=== PATIENT | female | born 1950 | race African-American/Black ===

== ENCOUNTER 2017-01-25 23:12 | Inpatient (IN) ==
[2017-01-26] MEDS ORDERED: FUROSEMIDE 100 MG/10 ML VIAL IV STA (01:11)
[2017-01-26] MEDS ORDERED: ASPIRIN 325 MG TABLET PO STA (01:11)
[2017-01-26] MEDS ORDERED: ONDANSETRON 4 MG/2 ML VIAL IV STA (01:11)
[2017-01-26] MEDS ORDERED: MORPHINE 2 MG/1 ML SYRINGE IV STA (01:11)
[2017-01-26] MEDS ORDERED: ALBUTEROL 2.5 MG/3 ML NEB RESP TX SCH (01:30)
--- NOTE | 2017-01-26 01:37 | Emergency Department Note ---
Todd Ayala Mantricia, am scribing for, and in the presence of, Melvin Choudhary MD 01:25. Kenrick Ayala Charles R, MD, personally performed the services described in this documentation, ascribed by Theodora Brooks in my presence, and it is both accurate and complete . Arrival - Arrival ED Nursing Triage Note: pt presented to triage via w/c with c/o edema to BLE x 3 days. 2+ pitting edema noted to BLE. also c/o SOB x 2 days. O2 sat 98% on RA. Denies CP Mode of Arrival: Wheelchair Limitations: No Limitations Source: Patient - History of Present Illness Onset (ago): day(s) Consistency: constant Severity: mild Date of Last Menstrual Period: hyst <Melvin Choudhary - Last Filed: 01/26/17 02:41> <Antonio Varela - Last Filed: 01/26/17 04:10> - Arrival Chief Complaint: Shortness of Breath Stated Complaint: swelling feet Time Seen by Provider: 01/26/17 01:11 - History of Present Illness HPI Narrative: Pt is a 66 y/o black female arriving to ED via wheelchair with c/o lower extremity edema bilaterally that onset 3 days ago. She does confirm heart problems and states that she does have one stent placed. Pt is currently taking lasix and plavix. Pt's bellmaker is Dr. Pagan. She denies any strenuous standing on her feet. No other complaints were reported to ED. (Theodora Brooks) Pt is a 66 y/o black female arriving to ED via wheelchair with c/o lower extremity edema bilaterally that onset 3 days ago. She does confirm heart problems and states that she does have one stent placed. Pt is currently taking lasix and plavix. Pt's bellmaker is Dr. Pagan. She denies any strenuous standing on her feet. No other complaints were reported to ED. (Melvin Choudhary) Allergies/Adverse Reactions: Allergies Allergy/AdvReac Type Severity Reaction Status Date / Time morphine Allergy Anxiety Verified 01/26/17 02:22 Review of System - Review of System 12 point system: reviewed and no additional remarkable complaints except as stated - Review of System Constitutional: Absent: chills, diaphoresis, fever Eyes: Absent: pain Respiratory: Absent: cough Cardiovascular: Absent: chest pain Gastrointestinal: Absent: abdominal pain, nausea, vomiting, diarrhea Musculoskeletal: Present: other (leg swelling). Absent: arm pain, back pain, leg pain, neck pain <Melvin Choudhary - Last Filed: 01/26/17 02:41> Medical,Surgical,& Family Hx - Medical History Cardio: History of: CAD, Hypertension Endocrine: History of: Diabetes Mellitus (IDDM) Rheumatology: History of;: Rheumatological Problems - Surgical History Cardiac Surgeries: Sugical HX of: Cardiac Catheterization (STENT) Orthopedic Surgeries: Surgical HX of;: Total Knee Replacement (BILATERAL) - Family History Family History: Reports;: Family Cancer, Family Diabetes, Family Heart Disease, Family Hypertension - Social History Smoking Status: Former smoker Frequency of Alcohol Use: Rarely Type of Drug Use: None <Melvin Choudhary - Last Filed: 01/26/17 02:41> Exam - General General appearance: alert, in no apparent distress - Head Head exam: Present: atraumatic, normocephalic, normal inspection - Eye Eye exam: Present: normal appearance, PERRL, EOMI - ENT ENT exam: Present: normal exam, normal oropharynx, mucous membranes moist, TM's normal bilaterally, normal external ear exam - Neck Neck exam: Present: normal inspection, full ROM, trachea midline. Absent: tenderness - Chest Chest inspection: Present: normal inspection, symmetric chest wall rise. Absent : tenderness - Respiratory Respiratory exam: Present: rales (bilateral) - Cardiovascular Cardiovascular exam: Present: regular rate, normal rhythm, normal heart sounds - Abdominal Exam Abdominal exam: Present: soft, normal bowel sounds. Absent: distention, tenderness, guarding, rebound - Extremities Exam Extremities exam: Present: normal inspection, full ROM, normal capillary refill , other (+2 LE edema bilat up to knees). Absent: tenderness - Back Exam Back exam: Present: normal inspection, full ROM. Absent: tenderness - Neurological Exam Neurological exam: Present: alert, oriented X3, CN II-XII intact, normal gait, reflexes normal - Psychiatric Psychiatric exam: Present: normal affect, normal mood - Skin Skin exam: Present: warm, dry, intact, normal color <Melvin Choudhary R - Last Filed: 01/26/17 02:41> Vital Signs: Vital Signs Temperature 98.2 F 01/25/17 23:28 Pulse Rate 102 H 01/26/17 02:50 Respiratory Rate 24 01/26/17 02:50 Blood Pressure 191/69 01/25/17 23:28 O2 Sat by Pulse Oximetry 99 01/26/17 02:50 Course - Consultations Time: 02:42 <Melvin Choudhary - Last Filed: 01/26/17 02:41> <Antonio Varela - Last Filed: 01/26/17 04:10> Course Narrative: I took over the care of this patient at 2 AM. She appeared to have heart failure and responded to some Lasix diuresis. Dr. Fletcher saw her from the hospital service and agreed to treat her in the hospital. (Antonio Varela) - Consultations Consultation #1: Signed out to Dr. Varela ER doctor assuming care of this patient labs are pending (Melvin Choudhary) Results - Labs CBC & BMP: 01/26/17 01:58 <Melvin Choudhary - Last Filed: 01/26/17 02:41> - Labs CBC & BMP: 01/26/17 01:58 01/26/17 01:58 <Antonio Varela - Last Filed: 01/26/17 04:10> Disposition Case discussed with: patient, patient's family <Melvin Choudhary - Last Filed: 01/26/17 02:41> Case discussed with: patient, patient's family Time of Disposition: 04:10 <Antonio Varela - Last Filed: 01/26/17 04:10> Clinical Impression: Congestive heart failure, Lower extremity edema Disposition: Still a Patient Condition: Stable
[2017-01-26 02:25] LABS: Basophils # 0.1 10*3/uL (0.0-0.2); Basophils % 0.5 % (0.0-0.8); Eosinophils # 0.5 10*3/uL (0.0-0.87); Hematocrit 27.3 VOL% (35.7-47.0); Hemoglobin 8.9 GM/DL (12.0-16.0); Immature Granulocytes % 0.5 %; Immature Granulocytes Absolute 0.06 #; Lymphocytes # 4.4 10*3/uL (1.4-4.0); Lymphocytes % 36.1 % (21.3-54.2); Mean Corpuscular HGB Conc 32.6 GM/DL (32-36); Mean Corpuscular Hemoglobin 28 PG (27-34); Mean Corpuscular Volume 86.9 FL (87-102); Mean Platelet Volume 9.8 FL (9.6-12.0); Monocytes # 1.5 10*3/uL (0.11-0.8); Neutrophils # 5.7 10*3/uL (1.4-7.4); Neutrophils % 46.9 % (38.7-73.9); Platelet Count 412 T/CUMM (130-400); Red Blood Count 3.14 MC/CUMM (3.8-5.5); White Blood Count 12.1 T/CUMM (4-12)
[2017-01-26] MEDS ORDERED: ONDANSETRON 4 MG/2 ML VIAL ONE (02:26)
[2017-01-26] MEDS ORDERED: FUROSEMIDE 40 MG/4 ML VIAL ONE (02:26)
[2017-01-26] MEDS ORDERED: ASPIRIN 325 MG TABLET ONE (02:26)
[2017-01-26] MEDS ORDERED: FUROSEMIDE 20 MG/2 ML VIAL ONE (02:26)
[2017-01-26 02:35] LABS: INR 0.9; PT Patient Result 9.3 SECS
[2017-01-26 02:35] LABS: Apearance,Urine CLEAR (Clear); Bilirubin,Urine Negative (Negative); Blood, Urine Small mg/dL (Negative); Glucose,Urine (UA) Negative (Negative); Ketones,Urine Negative (Negative); Mucus,Urine Occasional /LPF (Occasional); Nitrite,Urine Negative (Negative); Protein,Urine Negative; RBC,Urine 1 /HPF (0-4); Squamous Epithelial Cell,Urine Occasional /HPF (0-10); Urine Color Straw (Yellow); Urine Specific Gravity 1.005 (1.001-1.035); Urine Urobilinogen < 2.0 EU/DL (0.2-1.0)
[2017-01-26 03:00] LABS: Alanine Aminotransferase 38 U/L (13-56); Albumin 3.1 G/DL (3.4-5.0); Alkaline Phosphatase 160 U/L (45-117); Aspartate Amino Transferase 30 U/L (0-37); Bilirubin,Total < 0.39 MG/DL (0.2-1.0); Blood Urea Nitrogen 24 MG/DL (7-18); Calcium 8.9 MG/DL (8.5-10.1); Glucose 98 MG/DL (74-106); Magnesium 2.1 MG/DL (1.8-2.4); Osmolality,Calculated 286.1 MOS/KG (273-304); Potassium 4.8 MMOL/L (3.5-5.1); Sodium 142 MMOL/L (136-145); Total Protein 7.1 G/DL (6.4-8.3); Troponin I Only 0.032 NG/ML (0.00-0.045)
[2017-01-26] MEDS ORDERED: MAGNESIUM SULF RIDER 2 GM in PREMIX 1 EACH IV PRN (04:26)
[2017-01-26] MEDS ORDERED: MAGNESIUM SULF RIDER 4 GM in PREMIX 1 EACH IV PRN (04:26)
[2017-01-26] MEDS ORDERED: ONDANSETRON 4 MG/2 ML VIAL IV PRN (04:26)
--- NOTE | 2017-01-26 04:35 | Hospitalist History & Physical ---
Assessment and Plan (1) Anemia Status: Acute Current Visit: Yes (2) History of diabetes mellitus Status: Acute Current Visit: Yes (3) Congestive heart failure Status: Acute Current Visit: Yes (4) Lower extremity edema Status: Acute Assessment and plan: Patient symptoms have improved since diuresis. We will continue diuresis and monitor her chemistry. She will be admitted to telemetry are monitored bed. Will consult cardiology for their evaluation. Continue home meds as appropriate once they are confirmed. Current Visit: Yes History of Present Illness Chief complaint: Shortness of breath and lower extremity edema 3 days History of present illness: Ms. Henderson is a 66 year old female past medical history significant for coronary artery disease hypertension, diabetes and increased cholesterol who is in normal state of health until approximately 3-4 days ago. Patient reports lower extremity edema since that time. Patient is having increasing PND symptoms at night. She denies that this is ever happened to her before. She is some having some pain in her ribs at times but denies any significant chest pain. Patient's workup is consistent with congestive heart failure. Patient x- ray appears to be heart failure patient's symptoms and physical exam are consistent with heart failure her BNP though is not elevated. Allergies Allergy/AdvReac Type Severity Reaction Status Date / Time morphine Allergy Anxiety Verified 01/26/17 02:22 Medical,Surgical,& Family Hx - Medical History Cardio: History of: CAD, Hypertension Endocrine: History of: Diabetes Mellitus (IDDM) Rheumatology: History of;: Rheumatological Problems - Surgical History Cardiac Surgeries: Sugical HX of: Cardiac Catheterization (STENT) Orthopedic Surgeries: Surgical HX of;: Total Knee Replacement (BILATERAL) - Family History Family History: Reports;: Family Cancer, Family Diabetes, Family Heart Disease, Family Hypertension - Social History Smoking Status: Former smoker Frequency of Alcohol Use: Rarely Type of Drug Use: None 12 point system: reviewed and no additional remarkable complaints except as stated Exam - Constitutional Vitals: Period Temp Pulse Resp BP Sys/Jacobs Pulse Ox Last 24 Hr 98.2 F 76-102 20-24 191/69 98-99 General General appearance: alert, in no apparent distress - Head Head exam: Present: atraumatic, normocephalic, normal inspection - Eye Eye exam: Present: normal appearance, PERRL, EOMI - ENT ENT exam: Present: normal exam, normal oropharynx, mucous membranes moist, TM's normal bilaterally, normal external ear exam - Neck Neck exam: Present: normal inspection, full ROM, trachea midline. - Chest Chest inspection: Present: normal inspection, symmetric chest wall rise. - Respiratory Respiratory exam: Present: Rales are present - Cardiovascular Cardiovascular exam: Present: regular rate, normal rhythm, normal heart sounds - Abdominal Exam Abdominal exam: Present: soft, normal bowel sounds. - Extremities Exam Extremities exam: Present: normal inspection, full ROM, normal capillary refill , patient has pitting edema 2+ up to knees bilaterally - Back Exam Back exam: Present: normal inspection, full ROM. Absent: tenderness - Neurological Exam Neurological exam: Present: alert, oriented X3, CN II-XII intact, normal gait, reflexes normal - Psychiatric Psychiatric exam: Present: normal affect, normal mood - Skin Skin exam: Present: warm, dry, intact, normal color Results - Labs CBC & BMP: 01/26/17 01:58 01/26/17 01:58
[2017-01-26] MEDS ORDERED: GLUCAGON 1 MG VIAL IM PRN (06:27)
[2017-01-26] MEDS ORDERED: DEXTROSE 50% 25 GM/50 ML SYRINGE IV PRN (06:27)
--- NOTE | 2017-01-26 07:47 | XRay Report ---
XR chest 1V portable Indication: SOB Comparison: Chest x-ray dated January 12, 2018 Technique: Single frontal view of the chest. Findings: [id number] cardiomegaly. There is a nonspecific reticular pattern throughout the bilateral lungs suspicious for interstitial pulmonary edema, interstitial pneumonia, or other interstitial lung disease. Interstitial pneumonia favored. Visualized osseous and surrounding soft tissue structures appear grossly unchanged. IMPRESSION: As above. PROCEDURE INTERPRETED AT [facility] DEPARTMENT OF RADIOLOGY Final Report Signed by: Dr Aashish Avalos
[2017-01-26] MEDS ORDERED: FUROSEMIDE 40 MG/4 ML VIAL IV SCH (08:00)
[2017-01-26 08:09] LABS: Alanine Aminotransferase 31 U/L (13-56); Albumin 2.8 G/DL (3.4-5.0); Alkaline Phosphatase 120 U/L (45-117); Aspartate Amino Transferase 23 U/L (0-37); Bilirubin,Total < 0.39 MG/DL (0.2-1.0); Blood Urea Nitrogen 24 MG/DL (7-18); Calcium 8.3 MG/DL (8.5-10.1); Glucose 160 MG/DL (74-106); Potassium 3.9 MMOL/L (3.5-5.1); Sodium 143 MMOL/L (136-145); Total Protein 6.5 G/DL (6.4-8.3)
[2017-01-26 08:12] LABS: Troponin I Only 0.064 NG/ML (0.00-0.045)
--- NOTE | 2017-01-26 08:31 | EKG Report ---
Stationary ECG Study [facility] ER Test Date: 01/25/2017 11:35:03 PM Pat Name: WAQAS MENDENHALL Department: Room: 125 Gender: F [employer] Architect: Palma : 1950 Requested by: Melvin Grubbs Order Number: [id number] Maynor MD: NUHA PRASAD Intervals [place] Rate: 84 P: 43 MA: 189 QRS: 41 QRSD: 98 T: 29 QT: 365 QTc: 406 Interpretive Statements SINUS RHYTHM SEPTAL INFARCT, AGE UNDETERMINED Electronically Signed On 01-26-17 11:01:13 CDT by NUHA PRASAD [email or web address]
--- NOTE | 2017-01-26 08:56 | Cardiology Consult Note ---
<Lesli Arndt - Last Filed: 01/26/17 08:18> Assessment and Plan - Time spent with patient Time spent with patient: Greater than 30 minutes (1) Congestive heart failure Status: Acute Assessment and plan: See plan of care listed below. Current Visit: Yes (2) Dyspnea on exertion Status: Acute Assessment and plan: See plan of care listed below. Current Visit: Yes (3) History of coronary artery disease Status: Chronic Assessment and plan: See plan of care listed below. Current Visit: No (4) Renal insufficiency Status: Acute Assessment and plan: See plan of care listed below. Current Visit: Yes (5) PATEL (obstructive sleep apnea) Status: Chronic Assessment and plan: See plan of care listed below. Current Visit: Yes (6) Hypertension Status: Chronic Assessment and plan: See plan of care listed below. Current Visit: Yes (7) Obesity Status: Chronic Assessment and plan: See plan of care listed below. Current Visit: Yes (8) Former smoker Status: Chronic Assessment and plan: See plan of care listed below. Current Visit: No (9) Family history of early CAD Status: Chronic Assessment and plan: See plan of care listed below. Current Visit: Yes (10) Dyslipidemia Status: Chronic Assessment and plan: See plan of care listed below. Current Visit: Yes (11) Anemia Status: Acute Assessment and plan: See plan of care listed below. Current Visit: Yes (12) History of diabetes mellitus Status: Acute Current Visit: Yes (13) Lower extremity edema Status: Acute Current Visit: Yes History of Present Illness - Data of Consult Patient: known to practice within the last 3 years Consult date: 01/26/17 Requesting Physician: Julio Fletcher - Consult Narrative Reason for consult: chf History of present illness: Corporate Travel Agent: Dr. Carrillo Pagan Ms. Henderson is a 66 year old female with known history of coronary artery disease , routinely followed by Dr. Carrillo Pagan. Patient has cardiac risk factors significant for diabetes, hypertension, dyslipidemia, known CAD, obesity, former smoker (quit approximately 5 years ago), sedentary lifestyle and family history of coronary artery disease (father of ID at age 72). Patient has past medical history of GERD and obstructive sleep apnea (wears CPAP nightly). Patient's most recent heart catheterization was performed in 2002. At that time she received PCI to LAD. EF 60%. Her most recent cardiac stress test was performed December 2007. No evidence of ischemia was noted on perfusion imaging. Normal LV function. Echocardiogram 2014 revealed normal LV function, ejection fraction 60-65%. No significant valvular abnormality noted. Patient last saw Dr. Pagan in the cardiology clinic July 2016. She was doing well from a cardiac standpoint at that time. No changes in management. She continues to be on dual antiplatelet therapy since her heart catheterization in 2002. Patient was in her usual state of health until approximately 3 days ago. She reports persistent lower extremity edema and progressive dyspnea on exertion. She does report that she has edema to her bilateral lower extremities intermittently. This usually resolves after several days. However, this time was different as he continuously worsened instead of getting better with elevation. She does take Lasix at home and reports compliance. She also confirms orthopnea, cough and PND. Denies fever, chills, nausea, vomiting, melena and palpitations. She reports progressive dyspnea on exertion. She specifically mentions getting very short of breath while vacuuming, that has lately been significantly worse. She also reports that she often develops chest tightness while vacuuming. Usually last a proximal 30 minutes and relieved with rest. Located midsternally and does not radiate. Associated with shortness of breath. Her family members were becoming concerned due to her worsening lower extremity edema. They suggested that she be further evaluated in the emergency department. She has been admitted under hospitalist' s service and housed in the CCU. Cardiology has been consulted to further assist in her congestive heart failure. Patient was seen and examined in the CCU. She is awake alert and oriented 3. She is without complaints of chest pain, heaviness and tightness. She reports that her breathing has greatly improved after being diuresed. Troponin has been negative 1 and EKG is without changes when compared to her previous tracings. White blood cell count 12.1. H&H 27.3 and 8.9. Platelet count 412. Creatinine 1.3 with BUN of 24. Chest x-ray is consistent with congestive heart failure. However, her BNP is 100. Unknown etiology. Normal EF in 2014. I will order echocardiogram in order to reassess patient's LV function. Depending on results of echocardiogram, patient may need to undergo repeat heart catheterization once her breathing improves as she is having complaints concerning for angina. Currently chest pain-free. At this point she is stable with negative cardiac biomarkers 1 and unchanged EKG. We will continue to diurese her with IV Lasix. Monitor strict I's and O's and daily weights. I will discuss with Dr. Metzger and await her additional recommendations. ASSESSMENT/PLAN 1. CONGESTIVE HEART FAILURE - Chest x-ray is consistent with congestive heart failure. However, her BNP is 100. Unknown etiology. Normal EF in 2015. I will order echocardiogram in order to reassess patient's LV function. Depending on results of echocardiogram, patient may need to undergo repeat heart catheterization once her breathing improves as she is having complaints concerning for angina. Currently chest pain-free. At this point she is stable with negative cardiac biomarkers 1 and unchanged EKG. Will continue to cycle cardiac biomarkers and EKGs. We will continue to diurese her with IV Lasix. Monitor strict I's and O's and daily weights. I will discuss with Dr. Metzger and await her additional recommendations. 2. HISTORY OF CAD - Patient does have history of CAD received PCI to LAD 2002. Patient has remained on dual antiplatelet therapy since that time. At this point, we will continue dual antiplatelet therapy, lipid-lowering agent, beta blockade and ARB. Will order echocardiogram. Patient may need to undergo repeat heart catheterization once her breathing improves as she is having complaints concerning for angina. Troponin has been negative 1 and EKG is unchanged. We will continue to follow trend of cardiac biomarkers and EKG. Currently chest pain-free. Further recommendations to follow after echocardiogram results have been reviewed. I will further discuss with Dr. Metzger and await additional recommendations. 3. RENAL INSUFFICIENCY - Creatinine 1.3. This appears to be patient's baseline. Will monitor BMP closely with diuresis. 4. ANEMIA - H&H 27.3 and 8.9. No overt bleeding noted. Will check stools for occult blood. Anemia profile ordered. Patient is on dual antiplatelet therapy. We will monitor with daily CBC. 5. PATEL -CPAP nightly. 6. DIABETES - Increase sliding scale to medium regimen. Defer primary management to attending 7. HYPERTENSION - Currently under well control. Continue current plan of care. Monitor blood pressure and will adjust as needed this hospitalization. 8. OBESITY - Weight loss encouraged. 9. FORMER SMOKER - Reports that she quit approximately 5 years ago. 10.FAMILY HISTORY OF CAD - Father from ID at age 72. 11.DYSLIPIDEMIA - Continue lipid-lowering agent. FLP in the morning. CC: Rukhsana Chang MD - Home Medications and Allergies Home Medications: Home Medications Medication Instructions Recorded Confirmed Type Aspirin EC Tab 81 mg PO DAILY 01/26/17 01/26/17 History Atorvastatin [Lipitor] 80 mg PO BEDTIME 01/26/17 01/26/17 History B-Complex with Vitamin C 1,000 mg PO DAILY 01/26/17 01/26/17 History [B-Complex Plus Vitamin C] Cetirizine Tab [ZyrTEC Tab] 10 mg PO DAILY 01/26/17 01/26/17 History Clopidogrel [Plavix] 75 mg PO DAILY 01/26/17 01/26/17 History Diclofenac Sodium Tab [Voltaren] 75 mg PO DAILY 01/26/17 01/26/17 History Esomeprazole Magnesium 40 mg PO DAILY 01/26/17 01/26/17 History [Esomeprazole] Furosemide 40 mg PO DAILY 01/26/17 01/26/17 History HYDROcodone/ACETAMIN 5-325 [[place] 1 tablet PO Q8HR 01/26/17 01/26/17 History 5-325] Insulin NPH/Regular 70/30 [HumuLIN See Protocol SUBCUT DIRECTED 01/26/17 History 70/30] Metoprolol Tartrate 50 mg PO DAILY 01/26/17 01/26/17 History Pantoprazole Tab [Protonix Tab] 40 mg PO DAILY 01/26/17 01/26/17 History Pioglitazone [Actos] 45 mg PO DAILY 01/26/17 01/26/17 History Sertraline [Zoloft] 150 mg PO BEDTIME 01/26/17 01/26/17 History Valsartan [Diovan] 80 mg PO DAILY 01/26/17 01/26/17 History cefUROXime axetil [Cefuroxime] 500 mg PO BID 01/26/17 01/26/17 History metFORMIN [Glucophage] 1,000 mg PO BID W/MEALS 01/26/17 01/26/17 History Allergies/Adverse Reactions: Allergies Allergy/AdvReac Type Severity Reaction Status Date / Time morphine Allergy Anxiety Verified 01/26/17 02:22 - Constitutional Constitutional: Present: fatigue, weight gain. Absent: chills, fever(s), frequent falls - Cardiovascular Cardiovascular: Present: as per HPI, chest pain with activity, dyspnea, dyspnea on exertion, edema, orthopnea, PND. Absent: claudication, diaphoresis, radiating jaw, neck or arm pain, lightheadedness, palpitations - Respiratory Respiratory: Present: cough, dyspnea, dyspnea on exertion - Gastrointestinal Gastrointestinal: Present: abdominal pain, heartburn, nausea. Absent: constipation, cramping, diarrhea, hematemesis, hematochezia, loose stools, melena, vomiting - Neurological Neurological: Absent: abnormal gait, abnormal speech, behavioral changes, dizziness, frequent falls, syncope - Hematologic/Lymphatic Hematologic/Lymphatic: Absent: easy bleeding Medical,Surgical,& Family Hx - Medical History Cardio: History of: Cardiac Dysrhythmia, CAD, Hypertension Endocrine: History of: Diabetes Mellitus (IDDM), Dyslipidemia Rheumatology: History of;: Rheumatological Problems Respiratory: History of: Bronchitis, Obstructive Sleep Apnea, Pneumonia Gastrointestinal: History of: GERD - Surgical History Cardiac Surgeries: Sugical HX of: Cardiac Catheterization (STENT) Reproductive Surgeries: Surgical HX of;: Hysterectomy Orthopedic Surgeries: Surgical HX of;: Total Knee Replacement (BILATERAL) - Family History Family History: Reports;: Family Cancer, Family Diabetes, Family Heart Disease, Family Hypertension - Social History Smoking Status: Former smoker Frequency of Alcohol Use: Rarely Type of Drug Use: None Marital Status: Single Lives With:: Alone Functional capacity: independent ambulation Physical Examination Vital Signs Temp Pulse Resp BP Pulse Ox 98.2 F 76 20 191/69 98 01/25/17 23:28 01/25/17 23:28 01/25/17 23:28 01/25/17 23:28 01/25/17 23:28 Exam: General: Appears well with no apparent distress. Pleasant and cooperative. Appears comfortable. HEENT: PERRL, normocephalic, atraumatic. Mucous membranes moist. No jaundice noted. Conjunctiva moist and clear, sclerae anicteric Neck: No JVD/HJR, no thyromegaly or lymphadenopathy noted. Cardiac: Regular rate and rhythm. No murmur rub or gallop. Lungs: Basilar rales. Oxygen via nasal cannula Abdomen: Soft, bowel sounds normoactive. Nontender and nondistended. No abdominal bruit or thrill noted. No masses noted. Extremities: No clubbing, cyanosis noted. 2+ l bilateral ower extremity edema. Upper extremity pulses 2+. Lower extremity pulses 2+. Capillary refill less than 3 seconds. Skin: No unusual lesions or rashes. No skin breakdown appreciated. Neuro: Awake, alert and oriented 3. Moves all extremities well without hemiparesis or paralysis. No essential tremor is appreciated. Result/EKG - Labs CBC & BMP: 01/26/17 01:58 01/26/17 07:01 Lab Results: I have reviewed the past 24 hour labs Labs: Laboratory Results - last 24 hr 01/26/17 01/26/17 01/26/17 01:58 01:58 01:58 WBC 12.1 H RBC 3.14 L Hgb 8.9 L Hct 27.3 L MCV 86.9 L MCH 28 MCHC 32.6 RDW 16.0 Plt Count 412 H MPV 9.8 Neut % (Auto) 46.9 Lymph % (Auto) 36.1 [place] % (Auto) 12.0 Eos % (Auto) 4.0 Baso % (Auto) 0.5 Neut # (Auto) 5.7 Lymph # (Auto) 4.4 H [place] # (Auto) 1.5 H Eos # (Auto) 0.5 Baso # (Auto) 0.1 Immature Gran % 0.5 Nucleated RBC % 0.0 Immature Gran # 0.06 Nucleated RBCs # 0.00 Immature Plt Fraction 0.0 INR 0.9 PT Patient/Control Mix 9.3 D-Dimer, Quantitative Sodium 142 Potassium 4.8 Chloride 112 H Carbon Dioxide 26 Anion Gap 8.8 BUN 24 H Creatinine 1.30 H GFR Calculation 64 BUN/Creatinine Ratio 18.00 Glucose 98 Calculated Osmolality 286.1 Calcium 8.9 Magnesium 2.1 Total Bilirubin < 0.39 AST 30 ALT 38 Alkaline Phosphatase 160 H Total Creatine Kinase CK-MB (CK-2) Troponin I 0.032 B-Natriuretic Peptide Total Protein 7.1 Albumin 3.1 L Globulin 4.0 H Albumin/Globulin Ratio 0.7 L Urine Color Urine Appearance Urine pH Ur Specific [place] Urine Protein Urine Glucose (UA) Urine Ketones Urine Blood Urine Nitrate Urine Bilirubin Urine Urobilinogen Urine Leukocytes Urine RBC Ur Squamous Epith Cells Urine Mucus Ur Culture Indicated? 01/26/17 01/26/17 01/26/17 01:58 01:58 02:14 WBC RBC Hgb Hct MCV MCH MCHC RDW Plt Count MPV Neut % (Auto) Lymph % (Auto) [place] % (Auto) Eos % (Auto) Baso % (Auto) Neut # (Auto) Lymph # (Auto) [place] # (Auto) Eos # (Auto) Baso # (Auto) Immature Gran % Nucleated RBC % Immature Gran # Nucleated RBCs # Immature Plt Fraction INR PT Patient/Control Mix D-Dimer, Quantitative 1.5 Sodium Potassium Chloride Carbon Dioxide Anion Gap BUN Creatinine GFR Calculation BUN/Creatinine Ratio Glucose Calculated Osmolality Calcium Magnesium Total Bilirubin AST ALT Alkaline Phosphatase Total Creatine Kinase CK-MB (CK-2) Troponin I B-Natriuretic Peptide 100 Total Protein Albumin Globulin Albumin/Globulin Ratio Urine Color Straw Urine Appearance Clear Urine pH 5.0 Ur Specific [place] 1.005 Urine Protein Negative Urine Glucose (UA) Negative Urine Ketones Negative Urine Blood Small Urine Nitrate Negative Urine Bilirubin Negative Urine Urobilinogen < 2.0 H Urine Leukocytes Negative Urine RBC 1 Ur Squamous Epith Cells Occasional Urine Mucus Occasional Ur Culture Indicated? Not indicated 01/26/17 01/26/17 07:01 07:01 WBC RBC Hgb Hct MCV MCH MCHC RDW Plt Count MPV Neut % (Auto) Lymph % (Auto) [place] % (Auto) Eos % (Auto) Baso % (Auto) Neut # (Auto) Lymph # (Auto) [place] # (Auto) Eos # (Auto) Baso # (Auto) Immature Gran % Nucleated RBC % Immature Gran # Nucleated RBCs # Immature Plt Fraction INR PT Patient/Control Mix D-Dimer, Quantitative Sodium 143 Potassium 3.9 Chloride 110 H Carbon Dioxide 24 Anion Gap 12.9 BUN 24 H Creatinine 1.40 H GFR Calculation 61 BUN/Creatinine Ratio 17.00 Glucose 160 H Calculated Osmolality 291.0 Calcium 8.3 L Magnesium Total Bilirubin < 0.39 AST 23 ALT 31 Alkaline Phosphatase 120 H Total Creatine Kinase 216 H CK-MB (CK-2) 1.8 Troponin I 0.064 H D B-Natriuretic Peptide Total Protein 6.5 Albumin 2.8 L Globulin 3.7 H Albumin/Globulin Ratio 0.7 L Urine Color Urine Appearance Urine pH Ur Specific [place] Urine Protein Urine Glucose (UA) Urine Ketones Urine Blood Urine Nitrate Urine Bilirubin Urine Urobilinogen Urine Leukocytes Urine RBC Ur Squamous Epith Cells Urine Mucus Ur Culture Indicated? <Ni Metzger - Last Filed: 01/26/17 22:36> History of Present Illness - Consult Narrative CC: Rukhsana Chang MD Physical Examination Vital Signs Temp Pulse Resp BP Pulse Ox 98.2 F 76 20 191/69 98 01/25/17 23:28 01/25/17 23:28 01/25/17 23:28 01/25/17 23:28 01/25/17 23:28 Result/EKG - Labs CBC & BMP: 01/26/17 09:11 01/26/17 07:01 Labs: Laboratory Results - last 24 hr 01/26/17 01/26/17 01/26/17 01:58 01:58 01:58 WBC 12.1 H RBC 3.14 L Hgb 8.9 L Hct 27.3 L MCV 86.9 L MCH 28 MCHC 32.6 RDW 16.0 Plt Count 412 H MPV 9.8 Neut % (Auto) 46.9 Lymph % (Auto) 36.1 [place] % (Auto) 12.0 Eos % (Auto) 4.0 Baso % (Auto) 0.5 Neut # (Auto) 5.7 Lymph # (Auto) 4.4 H [place] # (Auto) 1.5 H Eos # (Auto) 0.5 Baso # (Auto) 0.1 Immature Gran % 0.5 Nucleated RBC % 0.0 Immature Gran # 0.06 Nucleated RBCs # 0.00 Platelet Estimate Immature Plt Fraction 0.0 Morphology Comment ESR [place] Absolute Retic Percent Retic Retic Hgb Equivalent INR 0.9 PT Patient/Control Mix 9.3 D-Dimer, Quantitative Sodium 142 Potassium 4.8 Chloride 112 H Carbon Dioxide 26 Anion Gap 8.8 BUN 24 H Creatinine 1.30 H GFR Calculation 64 BUN/Creatinine Ratio 18.00 Glucose 98 POC Glucose Hemoglobin A1c Calculated Osmolality 286.1 Calcium 8.9 Magnesium 2.1 Iron TIBC % Saturation Ferritin Total Bilirubin < 0.39 AST 30 ALT 38 Alkaline Phosphatase 160 H Total Creatine Kinase CK-MB (CK-2) Troponin I 0.032 B-Natriuretic Peptide Total Protein 7.1 Albumin 3.1 L Globulin 4.0 H Albumin/Globulin Ratio 0.7 L Vitamin B12 Folate Urine Color Urine Appearance Urine pH Ur Specific [place] Urine Protein Urine Glucose (UA) Urine Ketones Urine Blood Urine Nitrate Urine Bilirubin Urine Urobilinogen Urine Leukocytes Urine RBC Ur Squamous Epith Cells Urine Mucus Ur Culture Indicated? Blood Type Antibody Screen FRANK (IgG-AHG) FRANK, Polyspecific Crossmatch 01/26/17 01/26/17 01/26/17 01:58 01:58 02:14 WBC RBC Hgb Hct MCV MCH MCHC RDW Plt Count MPV Neut % (Auto) Lymph % (Auto) [place] % (Auto) Eos % (Auto) Baso % (Auto) Neut # (Auto) Lymph # (Auto) [place] # (Auto) Eos # (Auto) Baso # (Auto) Immature Gran % Nucleated RBC % Immature Gran # Nucleated RBCs # Platelet Estimate Immature Plt Fraction Morphology Comment ESR [place] Absolute Retic Percent Retic Retic Hgb Equivalent INR PT Patient/Control Mix D-Dimer, Quantitative 1.5 Sodium Potassium Chloride Carbon Dioxide Anion Gap BUN Creatinine GFR Calculation BUN/Creatinine Ratio Glucose POC Glucose Hemoglobin A1c Calculated Osmolality Calcium Magnesium Iron TIBC % Saturation Ferritin Total Bilirubin AST ALT Alkaline Phosphatase Total Creatine Kinase CK-MB (CK-2) Troponin I B-Natriuretic Peptide 100 Total Protein Albumin Globulin Albumin/Globulin Ratio Vitamin B12 Folate Urine Color Straw Urine Appearance Clear Urine pH 5.0 Ur Specific [place] 1.005 Urine Protein Negative Urine Glucose (UA) Negative Urine Ketones Negative Urine Blood Small Urine Nitrate Negative Urine Bilirubin Negative Urine Urobilinogen < 2.0 H Urine Leukocytes Negative Urine RBC 1 Ur Squamous Epith Cells Occasional Urine Mucus Occasional Ur Culture Indicated? Not indicated Blood Type Antibody Screen FRANK (IgG-AHG) FRANK, Polyspecific Crossmatch 01/26/17 01/26/17 01/26/17 07:01 07:01 07:01 WBC RBC Hgb Hct MCV MCH MCHC RDW Plt Count MPV Neut % (Auto) Lymph % (Auto) [place] % (Auto) Eos % (Auto) Baso % (Auto) Neut # (Auto) Lymph # (Auto) [place] # (Auto) Eos # (Auto) Baso # (Auto) Immature Gran % Nucleated RBC % Immature Gran # Nucleated RBCs # Platelet Estimate Immature Plt Fraction Morphology Comment ESR [place] Absolute Retic Percent Retic Retic Hgb Equivalent INR PT Patient/Control Mix D-Dimer, Quantitative Sodium 143 Potassium 3.9 Chloride 110 H Carbon Dioxide 24 Anion Gap 12.9 BUN 24 H Creatinine 1.40 H GFR Calculation 61 BUN/Creatinine Ratio 17.00 Glucose 160 H POC Glucose Hemoglobin A1c 6.6 H Calculated Osmolality 291.0 Calcium 8.3 L Magnesium Iron TIBC % Saturation Ferritin Total Bilirubin < 0.39 AST 23 ALT 31 Alkaline Phosphatase 120 H Total Creatine Kinase 216 H CK-MB (CK-2) 1.8 Troponin I 0.064 H D B-Natriuretic Peptide Total Protein 6.5 Albumin 2.8 L Globulin 3.7 H Albumin/Globulin Ratio 0.7 L Vitamin B12 Folate Urine Color Urine Appearance Urine pH Ur Specific [place] Urine Protein Urine Glucose (UA) Urine Ketones Urine Blood Urine Nitrate Urine Bilirubin Urine Urobilinogen Urine Leukocytes Urine RBC Ur Squamous Epith Cells Urine Mucus Ur Culture Indicated? Blood Type Antibody Screen FRANK (IgG-AHG) FRANK, Polyspecific Crossmatch 01/26/17 01/26/17 01/26/17 09:05 09:11 09:11 WBC 12.1 H RBC 2.72 L Hgb 7.8 L Hct 23.9 L MCV 87.9 MCH 29 MCHC 32.6 RDW 16.0 Plt Count 306 D MPV 10.2 Neut % (Auto) 74.5 H Lymph % (Auto) 11.6 L [place] % (Auto) 12.3 Eos % (Auto) 0.5 Baso % (Auto) 0.3 Neut # (Auto) 9.0 H Lymph # (Auto) 1.4 [place] # (Auto) 1.5 H Eos # (Auto) 0.1 Baso # (Auto) 0.0 Immature Gran % 0.8 Nucleated RBC % 0.0 Immature Gran # 0.10 Nucleated RBCs # 0.00 Platelet Estimate Normal Immature Plt Fraction 2.5 Morphology Comment ESR [place] 49 H Absolute Retic 0.1 Percent Retic 2.4 H Retic Hgb Equivalent 27.3 L INR PT Patient/Control Mix D-Dimer, Quantitative Sodium Potassium Chloride Carbon Dioxide Anion Gap BUN Creatinine GFR Calculation BUN/Creatinine Ratio Glucose POC Glucose Hemoglobin A1c Calculated Osmolality Calcium Magnesium Iron 17 L TIBC 297 % Saturation 5.7 L Ferritin 51.5 Total Bilirubin AST ALT Alkaline Phosphatase Total Creatine Kinase CK-MB (CK-2) Troponin I B-Natriuretic Peptide Total Protein Albumin Globulin Albumin/Globulin Ratio Vitamin B12 Folate Urine Color Urine Appearance Urine pH Ur Specific [place] Urine Protein Urine Glucose (UA) Urine Ketones Urine Blood Urine Nitrate Urine Bilirubin Urine Urobilinogen Urine Leukocytes Urine RBC Ur Squamous Epith Cells Urine Mucus Ur Culture Indicated? Blood Type Antibody Screen FRANK (IgG-AHG) FRANK, Polyspecific Crossmatch 01/26/17 01/26/17 01/26/17 09:11 09:11 11:18 WBC RBC Hgb Hct MCV MCH MCHC RDW Plt Count MPV Neut % (Auto) Lymph % (Auto) [place] % (Auto) Eos % (Auto) Baso % (Auto) Neut # (Auto) Lymph # (Auto) [place] # (Auto) Eos # (Auto) Baso # (Auto) Immature Gran % Nucleated RBC % Immature Gran # Nucleated RBCs # Platelet Estimate Immature Plt Fraction Morphology Comment ESR [place] Absolute Retic Percent Retic Retic Hgb Equivalent INR PT Patient/Control Mix D-Dimer, Quantitative Sodium Potassium Chloride Carbon Dioxide Anion Gap BUN Creatinine GFR Calculation BUN/Creatinine Ratio Glucose POC Glucose Hemoglobin A1c Calculated Osmolality Calcium Magnesium Iron TIBC % Saturation Ferritin Total Bilirubin AST ALT Alkaline Phosphatase Total Creatine Kinase CK-MB (CK-2) Troponin I B-Natriuretic Peptide Total Protein Albumin Globulin Albumin/Globulin Ratio Vitamin B12 633 Folate 9.6 Urine Color Urine Appearance Urine pH Ur Specific [place] Urine Protein Urine Glucose (UA) Urine Ketones Urine Blood Urine Nitrate Urine Bilirubin Urine Urobilinogen Urine Leukocytes Urine RBC Ur Squamous Epith Cells Urine Mucus Ur Culture Indicated? Blood Type O POSITIVE Antibody Screen Negative FRANK (IgG-AHG) Negative FRANK, Polyspecific Negative Crossmatch See Detail 01/26/17 01/26/17 01/26/17 15:53 16:20 19:58 WBC RBC Hgb Hct MCV MCH MCHC RDW Plt Count MPV Neut % (Auto) Lymph % (Auto) [place] % (Auto) Eos % (Auto) Baso % (Auto) Neut # (Auto) Lymph # (Auto) [place] # (Auto) Eos # (Auto) Baso # (Auto) Immature Gran % Nucleated RBC % Immature Gran # Nucleated RBCs # Platelet Estimate Immature Plt Fraction Morphology Comment ESR [place] Absolute Retic Percent Retic Retic Hgb Equivalent INR PT Patient/Control Mix D-Dimer, Quantitative Sodium Potassium Chloride Carbon Dioxide Anion Gap BUN Creatinine GFR Calculation BUN/Creatinine Ratio Glucose POC Glucose 100 226 H Hemoglobin A1c Calculated Osmolality Calcium Magnesium Iron TIBC % Saturation Ferritin Total Bilirubin AST ALT Alkaline Phosphatase Total Creatine Kinase 283 H D CK-MB (CK-2) 2.2 Troponin I 0.155 H D B-Natriuretic Peptide Total Protein Albumin Globulin Albumin/Globulin Ratio Vitamin B12 Folate Urine Color Urine Appearance Urine pH Ur Specific [place] Urine Protein Urine Glucose (UA) Urine Ketones Urine Blood Urine Nitrate Urine Bilirubin Urine Urobilinogen Urine Leukocytes Urine RBC Ur Squamous Epith Cells Urine Mucus Ur Culture Indicated? Blood Type Antibody Screen FRANK (IgG-AHG) FRANK, Polyspecific Crossmatch 01/26/17 Unknown WBC RBC Hgb Hct MCV MCH MCHC RDW Plt Count MPV Neut % (Auto) Lymph % (Auto) [place] % (Auto) Eos % (Auto) Baso % (Auto) Neut # (Auto) Lymph # (Auto) [place] # (Auto) Eos # (Auto) Baso # (Auto) Immature Gran % Nucleated RBC % Immature Gran # Nucleated RBCs # Platelet Estimate Immature Plt Fraction Morphology Comment ESR [place] Absolute Retic Percent Retic Retic Hgb Equivalent INR PT Patient/Control Mix D-Dimer, Quantitative Sodium Potassium Chloride Carbon Dioxide Anion Gap BUN Creatinine GFR Calculation BUN/Creatinine Ratio Glucose POC Glucose Hemoglobin A1c Calculated Osmolality Calcium Magnesium Iron TIBC % Saturation Ferritin Total Bilirubin AST ALT Alkaline Phosphatase Total Creatine Kinase CK-MB (CK-2) Troponin I B-Natriuretic Peptide Total Protein Albumin Globulin Albumin/Globulin Ratio Vitamin B12 Folate Urine Color Urine Appearance Urine pH Ur Specific [place] Urine Protein Urine Glucose (UA) Urine Ketones Urine Blood Urine Nitrate Urine Bilirubin Urine Urobilinogen Urine Leukocytes Urine RBC Ur Squamous Epith Cells Urine Mucus Ur Culture Indicated? Blood Type O POSITIVE Antibody Screen FRANK (IgG-AHG) FRANK, Polyspecific Crossmatch
[2017-01-26] MEDS ORDERED: ENOXAPARIN 40 MG/0.4 ML SYRINGE SUBCUT SCH (09:00)
[2017-01-26] MEDS ORDERED: ASPIRIN CHEW 81 MG TABLET PO SCH (09:00)
[2017-01-26] MEDS ORDERED: DICLOFENAC SODIUM 75 MG TABLET PO SCH (09:00)
[2017-01-26] MEDS ORDERED: CLOPIDOGREL 75 MG TABLET PO SCH (09:00)
[2017-01-26] MEDS ORDERED: PANTOPRAZOLE 40 MG TABLET PO SCH ×2 (09:00→14:59)
[2017-01-26] MEDS: CEFUROXIME 500 MG TABLET PO SCH ×2 (09:00→21:47)
[2017-01-26 09:23] LABS: Basophils % 0.3 % (0.0-0.8); Eosinophils # 0.1 10*3/uL (0.0-0.87); Eosinophils % 0.5 % (0.00-10.9); Hematocrit 23.9 VOL% (35.7-47.0); Hemoglobin 7.8 GM/DL (12.0-16.0); Immature Granulocytes % 0.8 %; Lymphocytes # 1.4 10*3/uL (1.4-4.0); Lymphocytes % 11.6 % (21.3-54.2); Mean Corpuscular HGB Conc 32.6 GM/DL (32-36); Mean Corpuscular Hemoglobin 29 PG (27-34); Mean Corpuscular Volume 87.9 FL (87-102); Mean Platelet Volume 10.2 FL (9.6-12.0); Monocytes # 1.5 10*3/uL (0.11-0.8); Monocytes % 12.3 % (1.7-12.7); Neutrophils % 74.5 % (38.7-73.9); Platelet Count 306 T/CUMM (130-400); Red Blood Count 2.72 MC/CUMM (3.8-5.5); White Blood Count 12.1 T/CUMM (4-12)
[2017-01-26] MEDS: VALSARTAN 80 MG TABLET PO SCH (09:49)
[2017-01-26] MEDS: METOPROLOL TARTRATE 50 MG TABLET PO SCH (09:49)
[2017-01-26] MEDS: CETIRIZINE 10 MG TABLET PO SCH (09:50)
[2017-01-26] MEDS: MULTIVITAMIN (BEROCCA) TABLET PO SCH (09:50)
[2017-01-26 09:55] LABS: Platelet Estimate Normal
[2017-01-26] MEDS: INSULIN REGULAR 100 UNIT/ML SUBCUT SCH ×4 (09:55→21:46)
[2017-01-26 10:03] LABS: Folate 9.6 NG/ML (5.4-24.0); Vitamin B12 633 PG/ML (211-911)
--- NOTE | 2017-01-26 10:34 | ECHO Report ---
Ella Henderson Exam Date: 01/26/2017 08:36 Referring Physician: Technologist: hilario Hdz ARDMS, RVT Age: 66 Ht (in): 68 Wt (lb): 274 Gender: F Exam Location: [facility] Echo Indications: Essential (primary) hypertension, Dyspnea, unspecified, Shortness of breath, CHF, Edema, IDDM, PATEL, Dyslipidemia, CAD w/prev stents, Anemia, Renal insufficiency BP: 131 / 46 HR: 101 Rhythm: Sinus Technical Quality: Fair IMPRESSIONS Normal LV systolic function, ejection fraction 65%. Grade 1/4 diastolic dysfunction. Mild biatrial enlargement. Mild right ventricular dilation. Mild aortic stenosis, mild to moderate aortic regurgitation. Mild to moderate tricuspid regurgitation. Mild pulmonic regurgitation. Mild mitral regurgitation. Severe pulmonary hypertension, pulmonary artery pressure estimated at 73 mmHg. MEASUREMENTS (Male / Female) Normal Values 2D ECHO LV Diastolic Diameter PLAX 4.8 cm 4.2 - 5.9 / 3.9 - 5.3 cm LV Systolic Diameter PLAX 2.9 cm LV Fractional Shortening PLAX 38.8 % IVS Diastolic Thickness 1.1 cm 0.6 - 1.0 / 0.6 - 0.9 cm LVPW Diastolic Thickness 1.1 cm 0.6 - 1.0 / 0.6 - 0.9 cm RV Internal Dim ED PLAX 3.3 cm Aortic Root Diameter 2.6 cm LA Systolic Diameter LX 4.3 cm 3.0 - 4.0 / 2.7 - 3.8 cm DOPPLER TR Peak Velocity 396.0 cm/s TR Peak Gradient 62.7 mmHg FINDINGS Left Ventricle Normal left ventricular cavity size. Normal left ventricular wall thickness. Left ventricular ejection fraction is estimated at 65 %. Right Ventricle The right ventricle is normal in size and function. Right Atrium The right atrium is normal in size. Left Atrium The left atrium is mildly enlarged. Mitral Valve Morphologically normal mitral valve. Mild mitral valve regurgitation. There is mitral annular calcification. Aortic Valve Llkt-wa-[id number] aortic valve regurgitation. Mild aortic valve stenosis, mean gradient 17 mmHg, COLLINS 1.8 cm. Tricuspid Valve Morphologically normal tricuspid valve. Moderate tricuspid valve regurgitation. Tricuspid regurgitation velocities suggest a PAP of 73 mmHg. Pulmonic Valve Morphologically normal pulmonic valve. Mild pulmonary valve regurgitation. Pericardium Normal pericardium without effusion. Aorta Normal ascending aorta dimension. Ni Metzger MD (Electronically Signed) Final Date: 26 January 2017 10:33
[2017-01-26 10:52] LABS: Sedimentation Rate-Westergren 49 MM/HR (0-30)
--- NOTE | 2017-01-26 10:55 | Event Note ---
Of note: I have tried to enter and cosign practitioner Hair's note but am unable to. This will serve as the addendum to her note. I have personally interviewed and examined the patient, reviewed the chart and discussed medical decision-making with practitioner Hair. I have read this note and agree with the documentation herein with the following exceptions and clarifications: She has had progressive dyspnea, and her clinical picture is not entirely adding up. She is described as having heart failure, although the chest x-ray says this may be more of an infiltrate. Her BNP is low. Her systolic function is preserved and she does not have any severe valvular disease on review of her echo. She does, however have pulmonary hypertension, and abnormal chest x-ray and an elevated white count which could be associated with a pulmonary process. She is not having a cough or fevers. Her symptoms can also be consistent with angina, however she has a significant microcytic anemia. We will need to workup her anemia prior to consideration of cardiac catheterization. In fact I am going to stop her Plavix, and diclofenac until this is complete. We will heme check her stools and check an iron profile. I will order bilateral lower extremity venous Dopplers. Her d-dimer is mildly elevated. I think in general we may need to proceed with a CT scan of the chest with contrast to further delineate her pulmonary process. Her renal function is mildly abnormal and I will discuss this with Dr. Chang to determine the next best step. We will also repeat her chest x-ray which may help us determine what to do next. She has a history of smoking but quit 5 years ago, has not been diagnosed with COPD or asthma. However, she does have sleep apnea , although she is CPAP compliant per her report. She has not followed by [facility].
--- NOTE | 2017-01-26 11:14 | Ultrasound Report ---
US venous doppler LE BI Indication: Edema. Comparison: None. Technique: Grayscale, spectral, and color Doppler interrogation of the bilateral lower extremity veins was performed. Augmentation and compression was performed. Findings: Grayscale, color Doppler, and pulsed Doppler evaluation of the veins of the bilateral lower extremity demonstrates no evidence of deep venous thrombosis. IMPRESSION: No evidence of deep venous thrombosis in either lower extremity. PROCEDURE INTERPRETED AT [facility] DEPARTMENT OF RADIOLOGY Final Report Signed by: Dr Aashish Avalos
[2017-01-26] MEDS ORDERED: SODIUM CHLORIDE 0.9% 250 ML IV PRN ×2 (11:18→14:59)
[2017-01-26 11:29] LABS: % Iron Saturation 5.7 % (18-50)
--- NOTE | 2017-01-26 12:26 | CT Report ---
CT chest PE study Indication: Severe SOB Comparison: None Technique: Multiple axial tomographic images of the chest were obtained after the administration of 80 cc Omnipaque 350 intravenous contrast. PE protocol followed. Coronal and sagittal maximum intensity projection images provided. Findings: Coronary artery and great vessel atherosclerotic calcifications present. Mild cardiomegaly. Mild reflux of contrast into the IVC may reflect an element of right heart failure. Prominent prevascular lymph node measuring up to 1.4 cm in short axis dimension. Moderately prominent subcarinal and bilateral hilar lymph nodes. Study somewhat limited secondary to respiratory motion without definitive segmental or larger pulmonary embolism demonstrated. Foqp-ta-hombtyno dependent change of the lungs. Mild nonspecific cystic change demonstrated within the inferior aspect of the bilateral lower lobes. Visualized upper abdomen demonstrates no acute abnormality. Small ossicle adjacent to posterior right glenoid may reflect sequela of old injury. Severe degenerative change of the left glenohumeral joint. Elevation of the right hemidiaphragm. IMPRESSION: Limited exam secondary to motion without definitive segmental or larger pulmonary embolism. Mild cardiomegaly. Mild reflux of contrast into the IVC may reflect an element of right heart failure. Indeterminate mediastinal and bilateral hilar lymph node enlargement. Rahy-vk-oozijkcq dependent change of the lungs. Mild nonspecific cystic change demonstrated within the inferior aspect of the bilateral lower lobes. Elevation of the right hemidiaphragm. The CT exam was performed using one or more of the following dose reduction techniques: Automated exposure control, adjustment of the mA and/or kV according to patient size, or use of iterative reconstruction technique. PROCEDURE INTERPRETED AT [facility] DEPARTMENT OF RADIOLOGY Final Report Signed by: Dr Aashish Avalos
--- NOTE | 2017-01-26 13:27 | Hospitalist Progress Note ---
Assessment and Plan (1) Right-sided heart failure Status: Acute Assessment and plan: due to pul htn Current Visit: Yes (2) Pulmonary hypertension, moderate to severe Status: Acute Assessment and plan: needs referral to [facility], cont oxygen, venous Doppler shows no evidence of DVT, chest CT showed no evidence of PE Current Visit: Yes (3) Lower extremity edema Status: Acute Assessment and plan: due to right sided heart failure, decrease diuresis Current Visit: Yes (4) Anemia Status: Acute Assessment and plan: 2 units of PRBC, guaiac stool, protonix bid Current Visit: Yes (5) History of diabetes mellitus Status: Acute Assessment and plan: We will get hemoglobin A1c to check for diabetes Current Visit: Yes (6) PATEL (obstructive sleep apnea) Status: Chronic Assessment and plan: We will consult Dr. Kwon to make sure she is compliant with her CPAP. Current Visit: Yes (7) Hypertension Status: Chronic Assessment and plan: Controlled with metoprolol and Diovan Current Visit: Yes (8) Obesity Status: Chronic Assessment and plan: needs to lose weight Current Visit: Yes (9) Acute renal failure Status: Acute Assessment and plan: decrease lasix Current Visit: Yes Hospitalist: Subjective Interval history: Discussed case with Dr. Mallory today. Patient has severe pulmonary hypertension. She reports compliance with her CPAP machine. She still has quite a bit of swelling today but is otherwise stable will move to telemetry today. Hemoglobin is low but low at 7.8 and we will give her a blood transfusion today. Dr. Metzger recommended chest CT which I have ordered. Exam - Constitutional Vitals: Period Temp Pulse Resp BP Sys/Jacobs Pulse Ox Last 24 Hr 97.3 F-98.2 F 69-103 17-29 115-191/44-69 92-99 Exam: Heart Rate-[RRR] Lungs-[crackles on right ] GI-[+bs soft, NT] Ext-[2+ edema] Neuro [Motor 5/5], [alert and oriented times 3] psych [normal mood and affect] General [no acute distress] Results - Labs CBC & BMP: 01/26/17 09:11 01/26/17 07:01 Lab Results: I have reviewed the past 24 hour labs - Diagnostic Findings Procedure: CT - chest: report reviewed by me (no PE, right heart failure, bilateral atelectasis ), Ultrasound: report reviewed by me (venous no dvt, echo ef 65% wit diastolic dysfunciton, mod tric regurg and severe pul htn with pap of 73)
[2017-01-26] MEDS: ACETAMINOPHEN 325 MG TABLET PO PRN (15:52)
--- NOTE | 2017-01-26 16:12 | Neurology Consult Note ---
History of Present Illness History of present illness: Ms. Henderson is a 66 year old female past medical history significant for coronary artery disease hypertension, diabetes and increased cholesterol who was admitted to the hospital with increasing shortness of breath and peripheral edema. Patient was having symptoms of PND. She was found to be in congestive heart failure. She stayed in CCU and there nursing staff noted some tremors in both upper extremities. She has been moved out of the CCU and she is at telemetry floor unit. All of her symptoms of tremors have resolved completely. She never had any tremors before. No difficulty in performing ADLs either. Home Medications Medication Instructions Recorded Confirmed Type Aspirin EC Tab 81 mg PO DAILY 01/26/17 01/26/17 History Atorvastatin [Lipitor] 80 mg PO BEDTIME 01/26/17 01/26/17 History B-Complex with Vitamin C 1,000 mg PO DAILY 01/26/17 01/26/17 History [B-Complex Plus Vitamin C] Cetirizine Tab [ZyrTEC Tab] 10 mg PO DAILY 01/26/17 01/26/17 History Clopidogrel [Plavix] 75 mg PO DAILY 01/26/17 01/26/17 History Diclofenac Sodium Tab [Voltaren] 75 mg PO DAILY 01/26/17 01/26/17 History Esomeprazole Magnesium 40 mg PO DAILY 01/26/17 01/26/17 History [Esomeprazole] Furosemide 40 mg PO DAILY 01/26/17 01/26/17 History HYDROcodone/ACETAMIN 5-325 [[place] 1 tablet PO Q8HR 01/26/17 01/26/17 History 5-325] Insulin NPH/Regular 70/30 [HumuLIN See Protocol SUBCUT DIRECTED 01/26/17 History 70/30] Metoprolol Tartrate 50 mg PO DAILY 01/26/17 01/26/17 History Pantoprazole Tab [Protonix Tab] 40 mg PO DAILY 01/26/17 01/26/17 History Pioglitazone [Actos] 45 mg PO DAILY 01/26/17 01/26/17 History Sertraline [Zoloft] 150 mg PO BEDTIME 01/26/17 01/26/17 History Valsartan [Diovan] 80 mg PO DAILY 01/26/17 01/26/17 History cefUROXime axetil [Cefuroxime] 500 mg PO BID 01/26/17 01/26/17 History metFORMIN [Glucophage] 1,000 mg PO BID W/MEALS 01/26/17 01/26/17 History Allergies Allergy/AdvReac Type Severity Reaction Status Date / Time morphine Allergy Anxiety Verified 01/26/17 02:22 12 point system: reviewed and no additional remarkable complaints except as stated Medical,Surgical,& Family Hx - Medical History Cardio: History of: Cardiac Dysrhythmia, CAD, Hypertension Endocrine: History of: Diabetes Mellitus (IDDM), Dyslipidemia Rheumatology: History of;: Rheumatological Problems Respiratory: History of: Bronchitis, Obstructive Sleep Apnea, Pneumonia Gastrointestinal: History of: GERD - Surgical History Cardiac Surgeries: Sugical HX of: Cardiac Catheterization (STENT) Reproductive Surgeries: Surgical HX of;: Hysterectomy Orthopedic Surgeries: Surgical HX of;: Total Knee Replacement (BILATERAL) - Family History Family History: Reports;: Family Cancer, Family Diabetes, Family Heart Disease, Family Hypertension - Social History Smoking Status: Former smoker Frequency of Alcohol Use: Rarely Type of Drug Use: None Exam - Constitutional Vitals: Period Temp Pulse Resp BP Sys/Jacobs Pulse Ox Last 24 Hr 97.3 F-98.7 F 65-103 17-29 115-191/44-75 92-100 Exam: GENERAL: Patient is in no acute distress. NECK: Neck is supple. There is no JVD. No carotid bruits present. No thyroid masses. CVS: First and second heart sounds are normal. There is no S3 present. Regular rate and rhythm. RESPIRATORY: Lungs are clear to auscultation without any rales or rhonchi. ABDOMEN: Soft and non-tender. Bowel sounds are present. There is no hepatosplenomegaly. EXT: There is 2+ palpable edema. Peripheral pulses are present. Skin: No rashes Central Nervous system: General: Alert, awake and Oriented x 3 Speech: Fluent Comprehension: Intact and normal Facial expressions: Normal Cranial Nerves: CN1/Olfactory: Normal CN II/ Optic: Normal, Visual Patel unreliable CN III, and : ADILENE & EOMI CN V: Normal & intact CN VII: face is symmetric CNVIII: Normal CN XI/X/XI/XII: Intact and Normal Motor: Bulk and Tone is normal. Strength in the right 5/5 Strength in the left 5/5 Sensory: Grossly intact for all the modalities of PP, LT and temp sense Reflexes: 1+ and symmetrical Cerebellar function: Normal finger to nose and heel to vela testing. Toes: Equivocal Gait: Not tested at this time Results - Labs CBC & BMP: 01/26/17 09:11 01/26/17 07:01 Assessment and Plan (1) Physiological tremor Status: Acute Assessment and plan: No evidence of essential tremors, parkinsonian tremors. Symptoms most likely represents enhanced with allergic tremors which has resolved completely. No further intervention from neuro standpoint Sign off please call as needed Current Visit: Yes
--- NOTE | 2017-01-26 16:43 | Sleep Medicine Consult ---
Assessment and Plan (1) PATEL (obstructive sleep apnea) Status: Chronic Assessment and plan: Mrs. Henderson has a positive history of obstructive sleep apnea after being diagnosed in 2005. She had a diagnostic respiratory disturbance index of 6.5 and has maintained compliance since that time. She was last seen in sleep clinic in January 2016 at which time she had a 93% compliance with excellent control of her underlying apnea. She is scheduled for her annual CPAP follow- up on February 06 but I encouraged her to have her CPAP device brought to the hospital so she can continue use throughout her hospital stay. She verbalized understanding. Current Visit: Yes History of Present Illness Chief complaint: PATEL History of present illness: Ms. Henderson is a 66 year old female who was admitted last night with shortness of breath and peripheral edema. She is well known to [facility] practice and is seen routinely for follow up. She continues to utilize CPAP therapy nightly and does benefit from treatment. She remains comfortable on the pressure setting as well as her mask fit and was using her device until her hospital admission last night. She denies any increasing sleepiness or fatigue throughout the day and does feel refreshed "most days". Her past medical history remains positive for diabetes, hypertension, hypercholesteremia and coronary artery disease. She will continue to undergo cardiac evaluation and further workup of her anemia during her hospital stay. She is unsure if a family member can bring her CPAP device to the hospital. She is currently utilizing oxygen via nasal cannula. Home Medications Medication Instructions Recorded Confirmed Type Aspirin EC Tab 81 mg PO DAILY 01/26/17 01/26/17 History Atorvastatin [Lipitor] 80 mg PO BEDTIME 01/26/17 01/26/17 History B-Complex with Vitamin C 1,000 mg PO DAILY 01/26/17 01/26/17 History [B-Complex Plus Vitamin C] Cetirizine Tab [ZyrTEC Tab] 10 mg PO DAILY 01/26/17 01/26/17 History Clopidogrel [Plavix] 75 mg PO DAILY 01/26/17 01/26/17 History Diclofenac Sodium Tab [Voltaren] 75 mg PO DAILY 01/26/17 01/26/17 History Esomeprazole Magnesium 40 mg PO DAILY 01/26/17 01/26/17 History [Esomeprazole] Furosemide 40 mg PO DAILY 01/26/17 01/26/17 History HYDROcodone/ACETAMIN 5-325 [[place] 1 tablet PO Q8HR 01/26/17 01/26/17 History 5-325] Insulin NPH/Regular 70/30 [HumuLIN See Protocol SUBCUT DIRECTED 01/26/17 History 70/30] Metoprolol Tartrate 50 mg PO DAILY 01/26/17 01/26/17 History Pantoprazole Tab [Protonix Tab] 40 mg PO DAILY 01/26/17 01/26/17 History Pioglitazone [Actos] 45 mg PO DAILY 01/26/17 01/26/17 History Sertraline [Zoloft] 150 mg PO BEDTIME 01/26/17 01/26/17 History Valsartan [Diovan] 80 mg PO DAILY 01/26/17 01/26/17 History cefUROXime axetil [Cefuroxime] 500 mg PO BID 01/26/17 01/26/17 History metFORMIN [Glucophage] 1,000 mg PO BID W/MEALS 01/26/17 01/26/17 History Allergies Allergy/AdvReac Type Severity Reaction Status Date / Time morphine Allergy Anxiety Verified 01/26/17 02:22 - Constitutional Constitutional: Absent: daytime sleepiness, night sweats, stops breathing during sleep - EENT Nose, mouth and throat: Absent: epistaxis, nasal congestion, sinus pressure - Cardiovascular Cardiovascular: Present: dyspnea on exertion. Absent: chest pain at rest, chest pain with activity, palpitations - Respiratory Respiratory: Present: snoring (controlled with CPAP). Absent: wheezing - Gastrointestinal Gastrointestinal: Absent: abdominal pain, constipation, heartburn, nausea - Genitourinary Genitourinary: Absent: urinary frequency - Musculoskeletal Musculoskeletal: Present: arthralgias. Absent: muscle cramps - Neurological Neurological: Present: dizziness, tremor(s). Absent: syncope - Psychiatric Psychiatric: Absent: anxiety, depression Exam (Pulmonay) H&P - Constitutional Vitals: Period Temp Pulse Resp BP Sys/Jacobs Pulse Ox Last 24 Hr 97.3 F-98.7 F 65-103 17-29 115-191/44-75 92-100 General appearance: over weight - Head Head exam: Present: normocephalic, atraumatic - Eye Pupils: Present: ADILENE - ENT ENT exam: Present: other (Mallampati class IV) - Expanded ENT Exam ENT Exam Throat exam: Absent: post pharyngeal edema, post pharyngeal erythema - Neck Neck exam: Present: normal inspection. Absent: lymphadenopathy, thyromegaly - Respiratory Respiratory exam: Present: clear to auscultation bilaterally. Absent: rales, rhonchi, wheezes - Cardiovascular Cardiovascular exam: Present: regular rate and rhythm. Absent: tachycardia - GI/Abdominal GI/Abdominal exam: Present: normal bowel sounds, soft. Absent: tenderness - Extremities Exam Extremities exam: Present: normal capillary refill, edema (trace edema) - Neurological Exam Neurological exam: Present: oriented X3 - Psychiatric Psychiatric exam: Present: normal affect, normal mood - Skin Skin exam: Present: warm, dry Medical,Surgical,& Family Hx - Medical History Cardio: History of: Cardiac Dysrhythmia, CAD, Hypertension Endocrine: History of: Diabetes Mellitus (IDDM), Dyslipidemia Rheumatology: History of;: Rheumatological Problems Respiratory: History of: Bronchitis, Obstructive Sleep Apnea, Pneumonia Gastrointestinal: History of: GERD - Surgical History Cardiac Surgeries: Sugical HX of: Cardiac Catheterization (STENT) Reproductive Surgeries: Surgical HX of;: Hysterectomy Orthopedic Surgeries: Surgical HX of;: Total Knee Replacement (BILATERAL) - Family History Family History: Reports;: Family Cancer, Family Diabetes, Family Heart Disease, Family Hypertension - Social History Smoking Status: Former smoker Frequency of Alcohol Use: Rarely Type of Drug Use: None Results - Labs CBC & BMP: 01/26/17 09:11 01/26/17 07:01
[2017-01-26 17:00] LABS: Troponin I Only 0.155 NG/ML (0.00-0.045)
[2017-01-26] MEDS ORDERED: FUROSEMIDE 20 MG/2 ML VIAL IV ONE (17:43)
--- NOTE | 2017-01-26 20:01 | Gastrointestinal Consult Note ---
Assessment and Plan (1) History of melena Status: Acute Assessment and plan: Patient states that over the last several weeks she has been watching intermittent black stools occur, she does not take any Pepto-Bismol, she is not taking any iron that I know of. Her daughter is going to bring in her medications to review. She also denies NSAID use. She states that she does take Nexium 40 mg prior to breakfast time each morning. We will continue her on twice daily pantoprazole. Further recommendations post upper endoscopy tomorrow. Will recheck CBC in the morning time to see how she had as done with the 2 unit transfusion. Risks and benefits of the procedure were reviewed with the patient and include but are not limited to: Bleeding, infection, perforation , cardiac and pulmonary compromise. Current Visit: Yes (2) Anemia Status: Acute Assessment and plan: This patient has had previous colonoscopy done back in 2011 which was completely normal. She has been having dark stools which suggest an upper GI bleeding source. Previous upper endoscopies that showed some mild antritis but nothing else much. She has been dilated but does not need this at this particular time. We should be able to discover the source for the dark stools on endoscopy provided this is not a Dieulafoy's lesion. Current Visit: Yes (3) History of dysphagia Status: Acute Assessment and plan: Patient is currently not having any difficulties with swallowing. We will not proceed with any dilation as part of this upper endoscopy will be doing tomorrow. Current Visit: Yes (4) Personal history of colonic polyps Status: Acute Assessment and plan: These were last discovered to be hyperplastic polyps removed from the sigmoid on 10/21/11. Patient does not need a repeat colonoscopy until September 2021. Current Visit: Yes History of Present Illness Chief complaint: Intermittent black stools, hematocrit dropped to 23%, prior dysphagia History of present illness: Ms. Henderson is a 66 year old female who was last scope by Dr. Riggs on for history of GERD, dysphasia, and hiatal hernia with stricturing--she ended up getting a dilation to 54 [place] by single pass Cecile at that time for mild stricture and what was thought to be esophageal dysmotility, there was antritis noted at the time. The patient last underwent colonoscopy in 10/21/11 demonstrating sigmoid diverticulosis and grade 3 hemorrhoids in addition his colonoscopy demonstrated hyperplastic polyps only, she will not require repeat colonoscopy until September 2021. She has been seen more recently by me because of elevated liver function tests and abnormal ultrasound. She has been seen by me in the clinic as recently as 10/20/16--mostly for a workup of her nonalcoholic fatty liver disease. The patient has recently been admitted to the hospital and unfortunately has a decrease in her hematocrit which was noted back in 2010 to be about 33%. More recently this admission the hematocrit was noted to be 27.3% and with hydration this is dropped down to 23.9% with a drop in her hemoglobin from 8.9-->7.8 g/dL. she is currently getting 2 units of blood transfusing of the time of this dictation. She does have a mild amount of epigastric tenderness. She does take Nexium on a routine basis 40 mg per day prior to breakfast time. She is not having any difficulty with swallowing but does admit to having black stools intermittently over the last several weeks. We will go ahead and arrange for repeat upper endoscopy in this situation. Interestingly on physical examination her stool is guaiac negative. She does not recall taking any recent NSAID's. Home Medications Medication Instructions Recorded Confirmed Type Aspirin EC Tab 81 mg PO DAILY 01/26/17 01/26/17 History Atorvastatin [Lipitor] 80 mg PO BEDTIME 01/26/17 01/26/17 History B-Complex with Vitamin C 1,000 mg PO DAILY 01/26/17 01/26/17 History [B-Complex Plus Vitamin C] Cetirizine Tab [ZyrTEC Tab] 10 mg PO DAILY 01/26/17 01/26/17 History Clopidogrel [Plavix] 75 mg PO DAILY 01/26/17 01/26/17 History Diclofenac Sodium Tab [Voltaren] 75 mg PO DAILY 01/26/17 01/26/17 History Esomeprazole Magnesium 40 mg PO DAILY 01/26/17 01/26/17 History [Esomeprazole] Furosemide 40 mg PO DAILY 01/26/17 01/26/17 History HYDROcodone/ACETAMIN 5-325 [[place] 1 tablet PO Q8HR 01/26/17 01/26/17 History 5-325] Insulin NPH/Regular 70/30 [HumuLIN See Protocol SUBCUT DIRECTED 01/26/17 History 70/30] Metoprolol Tartrate 50 mg PO DAILY 01/26/17 01/26/17 History Pantoprazole Tab [Protonix Tab] 40 mg PO DAILY 01/26/17 01/26/17 History Pioglitazone [Actos] 45 mg PO DAILY 01/26/17 01/26/17 History Sertraline [Zoloft] 150 mg PO BEDTIME 01/26/17 01/26/17 History Valsartan [Diovan] 80 mg PO DAILY 01/26/17 01/26/17 History cefUROXime axetil [Cefuroxime] 500 mg PO BID 01/26/17 01/26/17 History metFORMIN [Glucophage] 1,000 mg PO BID W/MEALS 01/26/17 01/26/17 History Allergies Allergy/AdvReac Type Severity Reaction Status Date / Time morphine Allergy Anxiety Verified 01/26/17 02:22 Medical,Surgical,& Family Hx - Medical History Cardio: History of: Cardiac Dysrhythmia, CAD, Hypertension Endocrine: History of: Diabetes Mellitus (IDDM), Dyslipidemia Rheumatology: History of;: Rheumatological Problems Respiratory: History of: Bronchitis, Obstructive Sleep Apnea, Pneumonia Gastrointestinal: History of: GERD - Surgical History Cardiac Surgeries: Sugical HX of: Cardiac Catheterization (STENT) Reproductive Surgeries: Surgical HX of;: Hysterectomy Orthopedic Surgeries: Surgical HX of;: Total Knee Replacement (BILATERAL) - Family History Family History: Reports;: Family Cancer, Family Diabetes, Family Heart Disease, Family Hypertension - Social History Smoking Status: Former smoker Frequency of Alcohol Use: Rarely Type of Drug Use: None Review of systems: Constitutional: Denies fever, chills, nausea, and vomiting Eyes: Denies dry eyes, and scleral icterus HENT: Denies headaches Cardiovascular: Denies acute chest pain and claudication Respiratory: Patient admits to shortness of breath, wheezing, and difficulty breathing, denies cough Gastrointestinal: As noted in the HPI Genitourinary: Denies dysuria and hematuria Neurologic: Denies vision loss, and loss of sensation Musculoskeletal: She does have joint swelling, joint stiffness, and muscular weakness Psychiatric: Denies depression and quentin symptoms Heme-Lymph: Denies easy bruising, lymph node enlargement or tenderness, night sweats, excessive bleeding Allergies-immunologic: Denies pruritus and rhinorrhea Exam - Constitutional Vitals: Period Temp Pulse Resp BP Sys/Jacobs Pulse Ox Last 24 Hr 97.3 F-99.3 F 65-103 16-29 115-191/44-75 92-100 Exam: Constitutional: Well-developed, well-nourished morbidly obese black female , alert, and in no acute distress Head and face: Head: Normocephalic atraumatic Eyes: Conjunctiva without injection, no gross scleral icterus, pupils equal and round bilaterally Ears: Intact to conversation in both ears Nose: External appearance is normal, nares patent Mouth: Oral mucous membranes moist without erythema dentition noted to be without erosion Neck: Normal appearance, no masses or tenderness, trachea midline Thyroid: Gland midline and appropriate size for age Respiratory: Normal respiratory effort, clear to auscultation without wheezes, rhonchi but some rales noted in the bases bilaterally Cardiovascular: Regular rate and rhythm, normal S1, S2, the exam is without rubs, murmurs or gallops. Gastrointestinal: Nontender to palpation, normal active bowel sounds, tone normal without rigidity or guarding, no masses present, no hepatomegaly, no spleen tip felt. Rectal exam shows somewhat decreased rectal tone small internal hemorrhoids are palpated stool is present brown guaiac negative. Lymphatic: Neck without adenopathy, axilla without lymphadenopathy present Musculoskeletal: Right and left lower extremities with evidence of 2+ pitting edema Skin and subcutaneous tissue: No rashes or ulcerations noted, normal skin turgor, digits and nails without clubbing/cyanosis/deformities. Neurologic: The patient is grossly oriented to person place and time, cranial nerves show tongue movements are normal with normal tongue extrusion midline, light touch sensation is intact. Psychiatric: No hallucinations or delusions are present, does not appear depressed Results - Labs CBC & BMP: 01/26/17 09:11 01/26/17 07:01
[2017-01-26] MEDS ORDERED: ATORVASTATIN 80 MG TABLET PO SCH (21:00)
[2017-01-26] MEDS ORDERED: SERTRALINE 100 MG TABLET PO SCH (21:00)
[2017-01-26] MEDS: PANTOPRAZOLE 40 MG TABLET PO SCH (21:47)
[2017-01-26 22:18] LABS: Hematocrit 29.7 VOL% (35.7-47.0); Hemoglobin 9.7 GM/DL (12.0-16.0)
[2017-01-27 05:18] LABS: Basophils # 0.1 10*3/uL (0.0-0.2); Basophils % 0.6 % (0.0-0.8); Eosinophils # 0.4 10*3/uL (0.0-0.87); Eosinophils % 4.3 % (0.00-10.9); Hematocrit 29.2 VOL% (35.7-47.0); Hemoglobin 9.6 GM/DL (12.0-16.0); Immature Granulocytes % 0.5 %; Immature Granulocytes Absolute 0.05 #; Lymphocytes # 2.7 10*3/uL (1.4-4.0); Lymphocytes % 26.6 % (21.3-54.2); Mean Corpuscular HGB Conc 32.9 GM/DL (32-36); Mean Corpuscular Hemoglobin 28 PG (27-34); Mean Corpuscular Volume 85.9 FL (87-102); Monocytes # 1.5 10*3/uL (0.11-0.8); Monocytes % 14.8 % (1.7-12.7); Neutrophils # 5.4 10*3/uL (1.4-7.4); Neutrophils % 53.2 % (38.7-73.9); Platelet Count 379 T/CUMM (130-400); Red Cell Distribution Width 16.2 % (9.3-17.3); White Blood Count 10.2 T/CUMM (4-12)
[2017-01-27 05:37] LABS: Calcium 8.5 MG/DL (8.5-10.1); Magnesium 2.2 MG/DL (1.8-2.4); Osmolality,Calculated 286.1 MOS/KG (273-304); Potassium 5.3 MMOL/L (3.5-5.1)
[2017-01-27 05:53] LABS: Risk Ratio 2.34; VLDL CHOLESTEROL 13.6 MG/DL
[2017-01-27] MEDS ORDERED: LIDOCAINE 1% 5 ML VIAL ONE (07:49)
[2017-01-27] MEDS ORDERED: PROPOFOL 200 MG/20 ML VIAL IV ONE (07:49)
--- NOTE | 2017-01-27 07:52 | Operative Note ---
Date of procedure: 01/27/17 Pre-op diagnosis: Melena and anemia, hematocrit 23.9--> 29.2% post 2 units Post-op diagnosis: other (No gross evidence of esophagitis but a 1 cm hiatal hernia noted and some mild patchy and erosive gastritis at least partially the cause for some of the patient's symptoms.) Procedure: PROCEDURE: Esophagogastroduodenoscopy (EGD) with cold biopsy for pathology REFERRING PHYSICIAN: Rukhsana Chang MD INDICATIONS: Melena and anemia with hematocrit down to 23% now up to 29% post 2 unit transfusion. The prior H&P was reviewed and interrim changes are as noted: No change from GI consultation yesterday ENDOSCOPIST: Denis Ceja MD ENDOSCOPE: Olympus Video 100 System upper endoscope ASA CLASS: 3 EXAM: CV: regular rate and rhythm respiratory: Clear without wheezes abdominal: active bowel sounds MEDICATION: Per nursing anesthesia protocol, see their notes PROCEDURE: After discussion of the potential risks and benefits of upper endoscopy, the informed consent was obtained. The patient was then placed in the left lateral decubitus position where sedation was achieved as noted above. Esophageal intubation was performed without difficulty, and the endoscope was advanced through the esophagus, stomach and duodenum. A slow withdrawal was then performed with retroflexion in the stomach for careful inspection of the incisura angularis, fundus and cardia. The scope was then returned to a neutral position and withdrawn through the esophagus. The patient tolerated the procedure well and without complication. BIOPSIES: Gastric antrum/body PHOTOGRAPHS: Obtained FINDINGS: Hypopharynx and Larynx: Normal except for increased secretions Esohagoscopy Upper and middle thirds: Normal Lower third tertiary contractions otherwise normal Esophogastric junctions: [place] EG junction, no evidence of esophagitis Lovett's or Neha-Bansal tear or stricturing Gastroscopy: Cardia/Fundus: 1 cm hiatal hernia otherwise normal Body: Mild patchy gastritis, biopsied Antrum and pylorus there is a single area here where there was some superficial erosive gastritis biopsies were taken in this area, no gross evidence of heme no ulceration or deep erosions noted Duodenoscopy: Bulb normal-appearing, biopsied for sprue Second and third portions: Normal-appearing, biopsied for sprue IMPRESSION: No gross evidence of esophagitis but a 1 cm hiatal hernia noted and some mild patchy and erosive gastritis at least partially the cause for some of the patient's symptoms. RECOMMENDATIONS: Follow up for biopsy results in 1-2 weeks by phone [phone] Continue anti-gastroesophageal reflux measures (avoid carbonated and acidic beverages, avoid eating within 2 hours of bedtime, avoid tight fitting clothing , and elevate the front bed posts 6 inches prior to sleeping. Continue use of Nexium 40 mg but take this prior to suppertime for best effect. Avoid caustic medications Denis Ceja MD COPY TO: Rukhsana Chang MD Anesthesia: [facility] [place] Surgeon / Physician: Denis Ceja Estimated blood loss: minimal Specimens: other (Gastric antrum/body, duodenum) Condition: stable Disposition: post procedure unit (GI suite) Results - Labs CBC & BMP: 01/27/17 02:52 01/27/17 02:52 Discharge Plan - Discharge Medications No Action Atorvastatin [Lipitor] 80 mg PO BEDTIME cefUROXime axetil [Cefuroxime] 500 mg PO BID Cetirizine Tab [ZyrTEC Tab] 10 mg PO DAILY Sertraline [Zoloft] 150 mg PO BEDTIME Pioglitazone [Actos] 45 mg PO DAILY Esomeprazole Magnesium [Esomeprazole] 40 mg PO DAILY HYDROcodone/ACETAMIN 5-325 [[place] 5-325] 1 tablet PO Q8HR Clopidogrel [Plavix] 75 mg PO DAILY metFORMIN [Glucophage] 1,000 mg PO BID W/MEALS Furosemide 40 mg PO DAILY Pantoprazole Tab [Protonix Tab] 40 mg PO DAILY Diclofenac Sodium Tab [Voltaren] 75 mg PO BID Insulin NPH/Regular 70/30 [HumuLIN 70/30] See Protocol SUBCUT DIRECTED Hydrocodone/Acetaminophen [Hydrocodon-Acetaminophen 5-325] 5 - 325 mg PO Q8HR PRN PRN Reason: Pain Aspirin EC Tab 81 mg PO DAILY Valsartan [Diovan] 80 mg PO DAILY B-Complex with Vitamin C [B-Complex Plus Vitamin C] 1,000 mcg PO DAILY Metoprolol Tartrate 50 mg PO DAILY - Follow Up or Referral - Forms/Instructions
--- NOTE | 2017-01-27 07:53 | Gastrointestinal Progress Note ---
Assessment and Plan (1) History of melena Status: Acute Assessment and plan: Patient states that over the last several weeks she has been watching intermittent black stools occur, she does not take any Pepto-Bismol, she is not taking any iron that I know of. Her daughter is going to bring in her medications to review. She also denies NSAID use. She states that she does take Nexium 40 mg prior to breakfast time each morning. We will continue her on twice daily pantoprazole. Further recommendations post upper endoscopy tomorrow. Will recheck CBC in the morning time to see how she had as done with the 2 unit transfusion. Risks and benefits of the procedure were reviewed with the patient and include but are not limited to: Bleeding, infection, perforation , cardiac and pulmonary compromise. 01/27/17--The patient ended up having some patchy erosive gastritis in the bottom part of her stomach. This does correlate with her slight left upper quadrant pain. She should avoid caustic medications and continue taking her Nexium but take this prior to suppertime for best effect. Because of the anemia she may wish to be off of her Plavix for the next week or so. She is certainly invited to come back to my office in 2 months to get a repeat CBC to check and see how she is doing at that point on the nighttime Nexium. Current Visit: Yes (2) Anemia Status: Acute Assessment and plan: This patient has had previous colonoscopy done back in 2011 which was completely normal. She has been having dark stools which suggest an upper GI bleeding source. Previous upper endoscopies that showed some mild antritis but nothing else much. She has been dilated but does not need this at this particular time. We should be able to discover the source for the dark stools on endoscopy provided this is not a Dieulafoy's lesion. 01/27/17--patient is doing fine at this point no evidence of retained heme in the stomach, the erosive gastritis was thought to be a source the patient's bleeding in the absence of other acute findings. She is already taking Nexium but she take this prior to suppertime for best effect. We will call her with biopsy results when these become available. We did not restructure her throat as she was not having dysphagia symptoms. Current Visit: Yes (3) History of dysphagia Status: Acute Assessment and plan: Patient is currently not having any difficulties with swallowing. We will not proceed with any dilation as part of this upper endoscopy will be doing tomorrow. 01/27/17--as noted above. Current Visit: Yes (4) Personal history of colonic polyps Status: Acute Assessment and plan: These were last discovered to be hyperplastic polyps removed from the sigmoid on 10/21/11. Patient does not need a repeat colonoscopy until September 2021. 01/27/17--repeat colonoscopy in September 2021. Patient can be discharged to home in my opinion follow-up with me in the office in 2-3 months. Current Visit: Yes Gastroenterology - PN: Subj Interval history: No new complaints Exam (Progress Note) - Constitutional Vitals: Period Temp Pulse Resp BP Sys/Jacobs Pulse Ox Last 24 Hr 97.2 F-99.3 F 65-95 16-22 115-182/44-78 95-100 General appearance: no acute distress - Eye Eye exam: Present: EOMI Pupils: Present: ADILENE - Respiratory Respiratory exam: Present: clear to auscultation bilaterally - Cardiovascular Cardiovascular exam: Present: regular rate and rhythm - GI/Abdominal GI/Abdominal exam: Present: normal bowel sounds, tenderness (Minimal epigastric tenderness), soft. Absent: distended, guarding, rebound - Neurological Exam Neurological exam: Present: alert, oriented X3 - Skin Skin exam: Present: warm Results - Labs CBC & BMP: 01/27/17 02:52 01/27/17 02:52
--- NOTE | 2017-01-27 08:16 | Anesthesia Post-Op ---
Anesthesia Post OP - Post Ansesthetic Evaluation Patient seen in post op: Yes Resp: within normal limits CV: within normal limits Mental: within normal limits Temp: within normal limits Leqc-Xi-[id number]: within normal limits Nausea and Vomiting: within normal limits Pain: within normal limits
[2017-01-27 08:21] LABS: Hemoglobin A1 (Alkaline) 98.1 % (96.5-98.5)
[2017-01-27 08:34] LABS: Hemoglobin A2 (Alkaline) 1.9 % (1.5-3.5)
[2017-01-27] MEDS ORDERED: FUROSEMIDE 40 MG/4 ML VIAL IV SCH (09:00)
--- NOTE | 2017-01-27 09:15 | EKG Report ---
Stationary ECG Study [facility] Test Date: 01/27/2017 9:13:16 AM Pat Name: WAQAS MENDENHALL Department: Room: 292 Gender: F [employer]: SANDRO : 1950 Requested by: Lesli Arndt Order Number: [id number] Reading MD: TAI RIVERO Intervals [place] Rate: 65 P: 50 IA: 188 QRS: 45 QRSD: 96 T: 48 QT: 408 QTc: 420 Interpretive Statements SINUS RHYTHM at 65 bpm WNL Electronically Signed On 01-27-17 12:53:59 CDT by TAI RIVERO [email or web address]
[2017-01-27] MEDS: INSULIN REGULAR 100 UNIT/ML SUBCUT SCH ×3 (09:20→17:45)
[2017-01-27] MEDS: METOPROLOL TARTRATE 50 MG TABLET PO SCH (10:24)
[2017-01-27] MEDS: PANTOPRAZOLE 40 MG TABLET PO SCH (10:24)
[2017-01-27] MEDS: CETIRIZINE 10 MG TABLET PO SCH (10:24)
[2017-01-27] MEDS: CEFUROXIME 500 MG TABLET PO SCH (10:25)
[2017-01-27] MEDS: MULTIVITAMIN (BEROCCA) TABLET PO SCH (10:25)
[2017-01-27] MEDS: VALSARTAN 80 MG TABLET PO SCH (10:27)
--- NOTE | 2017-01-27 11:28 | Discharge Summary ---
Hospital Course - Hospital Course Hospital Course: 66-year-old morbidly obese black female with a history of hypertension and diabetes is on multiple medications. Patient presents with complaints of shortness of breath and chest pain. Serial troponins were mildly elevated. Cardiology Dr. Metzger has seen her and does not feel this is cardiac in nature. Her echocardiogram showed an EF of 65% with mild diastolic dysfunction and moderate tricuspid regurg with PAP pressure of 73 which is consistent with pulmonary hypertension. Chest CT shows no evidence of PE. Her bilateral lower extremity edema is due to right-sided heart failure due to her pulmonary hypertension. Patient does not have CHF. She has got some mild aortic stenosis. She has renal failure and hyperkalemia due to diuresis with a normal BNP. Her valsartan is on hold due to her renal failure. Her hemoglobin A1c is 6.6 which shows good control. Patient is on Actos which should be discontinued , she is on metformin which should be discontinued and I have reduced her insulin dosages. Dr. Ceja has seen her and performed an EGD today which showed erosive gastritis. She needs to stay off her aspirin and Plavix for the next 9 days. Her last stent was many years ago. She needs to be on Protonix at night and Nexium during the day and follow with Dr. Ceja. Patient is compliant with her CPAP machine according to sleep medicine. She will continue to wear it at night to prevent further worsening of her pulmonary hypertension. Patient has a poor understanding of her medical needs. Her daughter is a engineering technology instructor and will assist. 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 Trujillo no further intervention is warranted. Patient had some acute blood loss anemia which is now stabilized after receiving 2 units packed red blood cells. It is essential that she finishes her treatment with her PPIs and I would question whether she needs to go back on both aspirin and Plavix at this point. I will defer that to her primary care doctor who knows her history better. She will also have follow-up with Dr. Romel Truong regarding her pulmonary hypertension. - Time spent with patient Time with patient DS: Greater than 30 minutes (50 min) Diagnosis - Discharge Diagnosis (1) Right-sided heart failure Status: Acute (2) Pulmonary hypertension, moderate to severe Status: Acute (3) Lower extremity edema Status: Acute (4) Anemia Status: Acute (5) History of diabetes mellitus Status: Acute (6) PATEL (obstructive sleep apnea) Status: Chronic (7) Hypertension Status: Chronic (8) Obesity Status: Chronic (9) Acute renal failure Status: Acute Discharge Plan - Discharge Data Disposition: Disch To Home/Self Care Condition at Discharge: Stable Discharge Diet: diabetic diet Activity: resume usual activities as tolerated Hygiene: no restrictions Weight Bearing at Discharge: full weight bearing - Discharge Medications New amLODIPine [Norvasc] 2.5 mg PO DAILY #30 tablet HYDROcodone/ACETAMIN 7.5-325 [Hendricks 7.5-325] 1 tablet PO Q4H #30 tablet Diclofenac 1% Gel [Voltaren 1% Gel] 1 applic TOP TID #100 gm Furosemide Tab [Lasix Tab] 20 mg PO DAILY #30 tablet Continue Atorvastatin [Lipitor] 80 mg PO BEDTIME Cetirizine Tab [ZyrTEC Tab] 10 mg PO DAILY Sertraline [Zoloft] 150 mg PO BEDTIME Esomeprazole Magnesium [Esomeprazole] 40 mg PO DAILY Insulin NPH/Regular 70/30 [HumuLIN 70/30] See Protocol SUBCUT DIRECTED # 100 ml B-Complex with Vitamin C [B-Complex Plus Vitamin C] 1,000 mcg PO DAILY Changed Pantoprazole Tab [Protonix Tab] 40 mg PO BEDTIME #30 tablet Metoprolol Tartrate 50 mg PO BID #60 tablet Discontinued cefUROXime axetil [Cefuroxime] 500 mg PO BID Pioglitazone [Actos] 45 mg PO DAILY HYDROcodone/ACETAMIN 5-325 [Hendricks 5-325] 1 tablet PO Q8HR Clopidogrel [Plavix] 75 mg PO DAILY metFORMIN [Glucophage] 1,000 mg PO BID W/MEALS Furosemide 40 mg PO DAILY Diclofenac Sodium Tab [Voltaren] 75 mg PO BID Hydrocodone/Acetaminophen [Hydrocodon-Acetaminophen 5-325] 5 - 325 mg PO Q8HR PRN PRN Reason: Pain Aspirin EC Tab 81 mg PO DAILY Valsartan [Diovan] 80 mg PO DAILY - Follow Up or Referral Follow Up: dr alyx [Other] - 1 Week Corry Kwon MD [Physician] - 02/06/17 Carrillo Pagan MD [Physician] - 2 Weeks (WITH EKG AND CBC) Denis Ceja MD [Physician] - 2 Weeks Con Truong MD [Physician] - 2 Weeks (pulmonary htn ) - Forms/Instructions Instructions: Heart Failure (DC), Anemia (DC) Additional Discharge Instructions: no eating 4 hours before bed. no asa or plavix for 9 days Exam - Constitutional Vitals: Period Temp Pulse Resp BP Sys/Jacobs Pulse Ox Last 24 Hr 97.2 F-99.3 F 65-78 16-22 125-182/50-78 95-100 General appearance: no acute distress, morbidly obese - Respiratory Respiratory exam: Present: clear to auscultation bilaterally. Absent: rhonchi, wheezes - Cardiovascular Cardiovascular exam: Present: regular rate and rhythm. Absent: systolic murmur - GI/Abdominal GI/Abdominal exam: Present: normal bowel sounds, soft. Absent: tenderness - Extremities Exam Extremities exam: Present: normal capillary refill. Absent: edema - Back Exam Back exam: Present: muscle spasm - Neurological Exam Neurological exam: Present: alert, oriented X3 - Psychiatric Psychiatric exam: Present: normal affect, normal mood - Skin Skin exam: Present: normal color, warm Discharge Results Procedures and tests throughout hospitalization: Pending Orders 01/26/17 08:48 Occult Blood, Stool Routine 01/28/17 04:00 BMP w/ Mg [Basic Metabolic Panel w/Mg] IN AM CBC [Comp Blood Count Auto Diff] IN AM 01/29/17 04:00 BMP w/ Mg [Basic Metabolic Panel w/Mg] IN AM CBC [Comp Blood Count Auto Diff] IN AM 01/30/17 04:00 BMP w/ Mg [Basic Metabolic Panel w/Mg] IN AM CBC [Comp Blood Count Auto Diff] IN AM Labs on day of discharge: Labs from last 24 hours 01/27/17 01/27/17 01/27/17 02:52 02:52 02:52 WBC 10.2 RBC 3.40 L D Hgb 9.6 L Hct 29.2 L MCV 85.9 L MCH 28 MCHC 32.9 RDW 16.2 Plt Count 379 D MPV 10.0 Neut % (Auto) 53.2 Lymph % (Auto) 26.6 Ballard % (Auto) 14.8 H Eos % (Auto) 4.3 Baso % (Auto) 0.6 Neut # (Auto) 5.4 Lymph # (Auto) 2.7 Ballard # (Auto) 1.5 H Eos # (Auto) 0.4 Baso # (Auto) 0.1 Immature Gran % 0.5 Nucleated RBC % 0.0 Immature Gran # 0.05 Nucleated RBCs # 0.00 Anemia Panel Interp Immature Plt Fraction 0.0 Hemoglobin A1 Hemoglobin A2 Hemoglobin C Hemoglobin D Hemoglobin E Hemoglobin F (ELP) Hemoglobin G Hemoglobin S Hgb ELP Interp Sodium 142 Potassium 5.3 H Chloride 108 H Carbon Dioxide 30 Anion Gap 9.3 BUN 26 H Creatinine 1.50 H GFR Calculation 56 BUN/Creatinine Ratio 17.00 Glucose 77 POC Glucose Hemoglobin A1c Calculated Osmolality 286.1 Calcium 8.5 Magnesium 2.2 Iron TIBC % Saturation Total Creatine Kinase CK-MB (CK-2) Troponin I Triglycerides 68 Cholesterol 152 LDL Cholesterol 73.0 VLDL Cholesterol 13.6 HDL Cholesterol 65 H Heart Disease Risk Ratio 2.34 Blood Type Antibody Screen FRANK (IgG-AHG) FRANK, Polyspecific Crossmatch 01/26/17 01/26/17 01/26/17 Unknown 22:10 19:58 WBC RBC Hgb 9.7 L D Hct 29.7 L MCV MCH MCHC RDW Plt Count MPV Neut % (Auto) Lymph % (Auto) Ballard % (Auto) Eos % (Auto) Baso % (Auto) Neut # (Auto) Lymph # (Auto) Ballard # (Auto) Eos # (Auto) Baso # (Auto) Immature Gran % Nucleated RBC % Immature Gran # Nucleated RBCs # Anemia Panel Interp Immature Plt Fraction Hemoglobin A1 Hemoglobin A2 Hemoglobin C Hemoglobin D Hemoglobin E Hemoglobin F (ELP) Hemoglobin G Hemoglobin S Hgb ELP Interp Sodium Potassium Chloride Carbon Dioxide Anion Gap BUN Creatinine GFR Calculation BUN/Creatinine Ratio Glucose POC Glucose 226 H Hemoglobin A1c Calculated Osmolality Calcium Magnesium Iron TIBC % Saturation Total Creatine Kinase CK-MB (CK-2) Troponin I Triglycerides Cholesterol LDL Cholesterol VLDL Cholesterol HDL Cholesterol Heart Disease Risk Ratio Blood Type O POSITIVE Antibody Screen FRANK (IgG-AHG) FRANK, Polyspecific Crossmatch 01/26/17 01/26/17 01/26/17 16:20 15:53 11:18 WBC RBC Hgb Hct MCV MCH MCHC RDW Plt Count MPV Neut % (Auto) Lymph % (Auto) Ballard % (Auto) Eos % (Auto) Baso % (Auto) Neut # (Auto) Lymph # (Auto) Ballard # (Auto) Eos # (Auto) Baso # (Auto) Immature Gran % Nucleated RBC % Immature Gran # Nucleated RBCs # Anemia Panel Interp Immature Plt Fraction Hemoglobin A1 Hemoglobin A2 Hemoglobin C Hemoglobin D Hemoglobin E Hemoglobin F (ELP) Hemoglobin G Hemoglobin S Hgb ELP Interp Sodium Potassium Chloride Carbon Dioxide Anion Gap BUN Creatinine GFR Calculation BUN/Creatinine Ratio Glucose POC Glucose 100 Hemoglobin A1c Calculated Osmolality Calcium Magnesium Iron TIBC % Saturation Total Creatine Kinase 283 H D CK-MB (CK-2) 2.2 Troponin I 0.155 H D Triglycerides Cholesterol LDL Cholesterol VLDL Cholesterol HDL Cholesterol Heart Disease Risk Ratio Blood Type O POSITIVE Antibody Screen Negative FRANK (IgG-AHG) FRANK, Polyspecific Crossmatch See Detail 01/26/17 01/26/17 01/26/17 09:11 09:11 09:11 WBC RBC Hgb Hct MCV MCH MCHC RDW Plt Count MPV Neut % (Auto) Lymph % (Auto) Ballard % (Auto) Eos % (Auto) Baso % (Auto) Neut # (Auto) Lymph # (Auto) Ballard # (Auto) Eos # (Auto) Baso # (Auto) Immature Gran % Nucleated RBC % Immature Gran # Nucleated RBCs # Anemia Panel Interp Immature Plt Fraction Hemoglobin A1 98.1 Hemoglobin A2 1.9 Hemoglobin C Not Reportable Hemoglobin D Not Reportable Hemoglobin E Not Reportable Hemoglobin F (ELP) Not Reportable Hemoglobin G Not Reportable Hemoglobin S Not Reportable Hgb ELP Interp Sodium Potassium Chloride Carbon Dioxide Anion Gap BUN Creatinine GFR Calculation BUN/Creatinine Ratio Glucose POC Glucose Hemoglobin A1c Calculated Osmolality Calcium Magnesium Iron TIBC % Saturation Total Creatine Kinase CK-MB (CK-2) Troponin I Triglycerides Cholesterol LDL Cholesterol VLDL Cholesterol HDL Cholesterol Heart Disease Risk Ratio Blood Type Antibody Screen FRANK (IgG-AHG) Negative FRANK, Polyspecific Negative Crossmatch 01/26/17 01/26/17 09:05 07:01 WBC RBC Hgb Hct MCV MCH MCHC RDW Plt Count MPV Neut % (Auto) Lymph % (Auto) Ballard % (Auto) Eos % (Auto) Baso % (Auto) Neut # (Auto) Lymph # (Auto) Ballard # (Auto) Eos # (Auto) Baso # (Auto) Immature Gran % Nucleated RBC % Immature Gran # Nucleated RBCs # Anemia Panel Interp Immature Plt Fraction Hemoglobin A1 Hemoglobin A2 Hemoglobin C Hemoglobin D Hemoglobin E Hemoglobin F (ELP) Hemoglobin G Hemoglobin S Hgb ELP Interp Sodium Potassium Chloride Carbon Dioxide Anion Gap BUN Creatinine GFR Calculation BUN/Creatinine Ratio Glucose POC Glucose Hemoglobin A1c 6.6 H Calculated Osmolality Calcium Magnesium Iron 17 L TIBC 297 % Saturation 5.7 L Total Creatine Kinase CK-MB (CK-2) Troponin I Triglycerides Cholesterol LDL Cholesterol VLDL Cholesterol HDL Cholesterol Heart Disease Risk Ratio Blood Type Antibody Screen FRANK (IgG-AHG) FRANK, Polyspecific Crossmatch DS: Provider Date of admission: 01/26/17 04:27 Primary care physician: Dylan Dias DO Attending physician on admission: Julio Fletcher MD Consults: 01/26/17 04:30 Consult to Physician [CONS] Routine Comment: Patient Dr. Pagan with history of cad Consulting Provider: Cardiology - [facility] 01/26/17 11:21 Consult to Sleep Center [CONS] Routine Reason for Sleep Center: Sleep Center Physician Consult Comment: compliance with cpap 01/26/17 11:32 Consult to Physician [CONS] Routine Comment: Consulting Provider: Khari Trujillo Consulting Provider Notified: Yes When should Consulting Provider be notified: Now Person Notified: Dr. Trujillo's nurse Date Notified: 01/26/17 Time Notified: 14:00 01/26/17 14:59 Consult to Physician [CONS] Routine Comment: anemia Consulting Provider: Denis Ceja When should Consulting Provider be notified: Now Consult to Specialist Group: Gastroenterology Person Notified: jose carlos Date Notified: 01/26/17 Time Notified: 15:10 01/26/17 15:50 Consult to Physician [CONS] Routine Comment: Consulting Provider: 01/26/17 20:45 Consult to Anesthesiology [CONS] Routine Consulting Provider: Reason for Anesthesiology: Pre-op Clearance Discharging clinician: Rukhsana Chang MD
[2017-01-27] MEDS: ACETAMINOPHEN 325 MG TABLET PO PRN (12:02)
--- NOTE | 2017-01-27 13:43 | Physician Query Form ---
CLICK EDIT DOCUMENT TO SELECT QUERY ANSWER --> OK --> SIGN Melissa Fuentes RN, CCDS Certified Clinical Punchboard Filling Machine Operator W) [phone] (f) [phone] [email or web address] PROVIDERS: Make your selection(s) from the choices in EACH section by typing an "x" and enter comments in the comment section. Please use your independent medical judgment in providing your response. This request does not imply that any particular answer is desired or expected. CLINICAL INDICATORS: (Providers should not edit this section) The medical record indicates that the patient was admitted with CHF, Renal insufficiency is mentioned, Creatinine of 1.3# ("this appears to be patient's baseline"), GFR of 64# on admission that decreased to 56 on the 1st and the patient was treated with Lasix. Clarify which of the following most accurately represents the patient's renal status: (x ) Acute kidney injury (non-traumatic) ( ) Acute renal failure ( ) Acute renal failure with underlying Chronic Kidney Disease (CKD) - please provide stage below ( ) Acute renal failure with pathological renal lesion ( ) Acute renal failure with necrosis ( ) tubular ( ) medullary ( ) cortical ( ) CKD - please provide stage below ( ) End Stage Renal Disease ( ) Acute interstitial nephritis ( ) Hepatorenal syndrome ( ) Other, please specify: ( ) Clinically unable to determine Chronic Kidney Disease Stages Source: National Kidney Disease Foundation ( ) Stage I (eGFR > or = 90) ( ) Stage II (eGFR 60 - 89) ( ) Stage III (eGFR 30 - 59) ( ) Stage IV (eGFR 15 - 29) ( ) Stage V (eGFR < 15 or dialysis) COMMENTS: PLEASE ALSO DOCUMENT RESPONSE IN PROGRESS NOTES AND/OR DISCHARGE SUMMARY Use of terms such as suspected, likely, or probable (associated with a specific diagnosis that is being evaluated, monitored, or treated as if it exists) are acceptable and can be restated in the discharge summary if not ruled out. MTDD
--- NOTE | 2017-01-27 13:46 | Physician Query Form ---
CLICK EDIT DOCUMENT TO SELECT QUERY ANSWER --> OK --> SIGN Melissa Fuentes RN, CCDS Certified Clinical Fractionating Still Operator W) [phone] (f) [phone] [email or web address] PROVIDERS: Make your selection(s) from the choices in EACH section by typing an "x" and enter comments in the comment section. Please use your independent medical judgment in providing your response. This request does not imply that any particular answer is desired or expected. CLINICAL INDICATORS: (Providers should not edit this section) The medical record indicates that the patient was admitted with CHF "acute", BNP 100#, " Normal LV systolic function, ejection fraction 65%", Per Cardiology "abnormal chest x-ray, and an elevated white count which could be associated with a pulmonary process" and the patient was treated with IV Lasix. Please provide further specificity regarding CHF. ACUITY: ( ) Acute ( ) Chronic ( ) Acute on Chronic ( ) Clinically unable to determine TYPE: ( ) Systolic (HFrEF - heart failure with reduced systolic function/EF) ( ) Diastolic (HFpEF - heart failure with preserved systolic function/EF) ( ) Combined Systolic/Diastolic ( x) Other, please specify: patient does not have chf ( ) Clinically unable to determine ( ) Past Medical History of Systolic CHF ( ) Past Medical History of Diastolic CHF ( ) Clinically unable to determine COMMENTS: PLEASE ALSO DOCUMENT RESPONSE IN PROGRESS NOTES AND/OR DISCHARGE SUMMARY Use of terms such as suspected, likely, or probable (associated with a specific diagnosis that is being evaluated, monitored, or treated as if it exists) are acceptable and can be restated in the discharge summary if not ruled out. MTDD
[2017-01-27 16:54] VITALS: BP 141/66
--- NOTE | 2017-01-28 09:27 | Pathology Report from [facility] ---
[facility] [place] : [id number] PATIENT NAME : Ella Henderson ORDERING DR : Denis Ceja MD CLINICAL HX: GI bleed, anemia POST-OP DX: Same SPECIMEN INFO: #1 Duodenum #2 JAYDEN GROSS DESCRIPTION: #1 Received in formalin labeled with the patients name ELLA HENDERSON and #1 consists of an aggregate of pink-mosher tissue measuring 0.7 x 0.4 cm. Submitted in cassette #1.#2 Received in formalin labeled with the patients name ELLA HENDERSON and #2 consists of three pink-mosher tissue fragments measuring in aggregate 1.1 x 0.4 cm. Submitted in cassette #2. DIAGNOSIS FOR ELLA HENDERSON: #1 DUODENAL BIOPSY: Benign small bowel mucosa with normal villous architecture and chronic inflammation. No evidence of sprue.#2 GASTRIC ANTRAL BIOPSY: Mild chronic superficial gastritis. No evidence of malignancy. H. pylori not seen on H&E or special stain with appropriate control. COLLECTED DATE: 01/27/2017 [facility] REPORT DATE: 01/28/2017 ELECTRONICALLY SIGNED BY: Romie Clark III, M.D. 01/28/2017 - 9:01:16 [facility]
== END 2017-01-27 17:49 | disposition home or self-care (01) | DRG 291 ==
LOC: N.ED 23:12 → N.EDINP 01-26 04:26 → SUATTDRO 01-26 04:26 → N.TELES 01-26 05:47 → N.CC 01-26 06:11 → N.TELEN 01-26 14:46
PROVIDERS: ADMIT Internal Medicine; ATTEND Internal Medicine

== ENCOUNTER 2018-12-09 20:17 | Observation (INO) ==
[2018-12-09] MEDS ORDERED: NITROGLYCERIN 2% OINT 1 INCH/GM PACK TOP STA (23:23)
[2018-12-09] MEDS ORDERED: ONDANSETRON 4 MG/2 ML VIAL IV STA (23:23)
[2018-12-09] MEDS ORDERED: FUROSEMIDE 100 MG/10 ML VIAL IV STA (23:23)
[2018-12-09] MEDS ORDERED: ASPIRIN 325 MG TABLET PO STA (23:23)
[2018-12-10 00:26] LABS: INR 0.8; PT Patient Result 9.2 SECS
[2018-12-10 00:41] LABS: Alanine Aminotransferase 35 U/L (13-56); Albumin 3.3 G/DL (3.4-5.0); Alkaline Phosphatase 170 U/L (45-117); Aspartate Amino Transferase 24 U/L (0-37); Bilirubin,Total < 0.39 MG/DL (0.2-1.0); Blood Urea Nitrogen 46 MG/DL (7-18); Calcium 8.6 MG/DL (8.5-10.1); Glucose 175 MG/DL (74-106); Osmolality,Calculated 292.5 MOS/KG (273-304); Total Protein 7.9 G/DL (6.4-8.3)
[2018-12-10 00:48] LABS: Basophils # 0.1 10*3/uL (0.0-0.2); Basophils % 0.4 % (0.0-0.8); Eosinophils # 0.3 10*3/uL (0.0-0.87); Eosinophils % 2.5 % (0.00-10.9); Hematocrit 29.4 VOL% (35.7-47.0); Hemoglobin 9.2 GM/DL (12.0-16.0); Immature Granulocytes % 0.7 %; Immature Granulocytes Absolute 0.08 #; Lymphocytes # 3.6 10*3/uL (1.4-4.0); Mean Corpuscular HGB Conc 31.3 GM/DL (32-36); Mean Corpuscular Volume 91.6 FL (87-102); Mean Platelet Volume 10.7 FL (9.6-12.0); Monocytes % 10.4 % (1.7-12.7); Platelet Count 395 T/CUMM (130-400); Red Blood Count 3.21 MC/CUMM (3.8-5.5); White Blood Count 12.2 T/CUMM (4-12)
[2018-12-10] MEDS ORDERED: DOCUSATE SODIUM 100 MG CAPSULE PO PRN (01:05)
[2018-12-10] MEDS ORDERED: MAGNESIUM SULF RIDER 2 GM in PREMIX 1 EACH IV PRN (01:05)
[2018-12-10] MEDS ORDERED: POTASSIUM CHLORIDE 20 MEQ TABLET PO PRN (01:05)
[2018-12-10] MEDS ORDERED: traZODone 50 MG TABLET PO PRN (01:05)
[2018-12-10] MEDS ORDERED: ONDANSETRON 4 MG/2 ML VIAL IV PRN (01:05)
[2018-12-10] MEDS ORDERED: DEXTROSE 50% 25 GM/50 ML VIAL IV PRN (01:05)
[2018-12-10] MEDS ORDERED: ACETAMINOPHEN 325 MG TABLET PO PRN (01:05)
[2018-12-10] MEDS ORDERED: MAGNESIUM SULF RIDER 4 GM in PREMIX 1 EACH IV PRN (01:05)
[2018-12-10] MEDS ORDERED: GLUCAGON 1 MG VIAL IM PRN (01:05)
[2018-12-10] MEDS ORDERED: ALBUTEROL/IPRATROPIUM 3 ML NEB RESP TX STA (01:12)
[2018-12-10] MEDS ORDERED: SODIUM POLYSTYRENE SULFATE 15 GM/60 ML BOTTLE PO ONE (05:07)
[2018-12-10] MEDS ORDERED: FUROSEMIDE 40 MG/4 ML VIAL IV SCH (06:00)
[2018-12-10 06:23] LABS: Basophils % 0.4 % (0.0-0.8); Eosinophils # 0.3 10*3/uL (0.0-0.87); Eosinophils % 2.5 % (0.00-10.9); Hematocrit 29.6 VOL% (35.7-47.0); Hemoglobin 9.3 GM/DL (12.0-16.0); Immature Granulocytes % 0.4 %; Immature Granulocytes Absolute 0.04 #; Lymphocytes # 3.1 10*3/uL (1.4-4.0); Lymphocytes % 27.4 % (21.3-54.2); Mean Corpuscular HGB Conc 31.4 GM/DL (32-36); Mean Corpuscular Volume 90.2 FL (87-102); Mean Platelet Volume 10.2 FL (9.6-12.0); Monocytes % 11.7 % (1.7-12.7); Neutrophils % 57.6 % (38.7-73.9); Platelet Count 361 T/CUMM (130-400); Red Blood Count 3.28 MC/CUMM (3.8-5.5); Red Cell Distribution Width 15.8 % (9.3-17.3); White Blood Count 11.2 T/CUMM (4-12)
[2018-12-10 06:56] LABS: Albumin 3.1 G/DL (3.4-5.0); Bilirubin,Total 0.7 MG/DL (0.2-1.0); Calcium 8.6 MG/DL (8.5-10.1); Osmolality,Calculated 293.4 MOS/KG (273-304); Thyroid Stimulating Hormone 3.04 uIU/ml (0.358-3.74); Total Protein 7.5 G/DL (6.4-8.3)
[2018-12-10] MEDS: INSULIN LISPRO 100 UNIT/ML SUBCUT SCH ×4 (08:16→21:04)
[2018-12-10 08:31] LABS: Apearance,Urine CLEAR (Clear); Bilirubin,Urine Negative (Negative); Blood, Urine Negative (Negative); Glucose,Urine (UA) Negative (Negative); Ketones,Urine Negative (Negative); Mucus,Urine Occasional /LPF (Occasional); Nitrite,Urine Negative (Negative); Protein,Urine Negative; RBC,Urine 1 /HPF (0-4); Urine Color Colorless (Yellow); Urine Specific Gravity 1.005 (1.001-1.035); Urine Urobilinogen < 2.0 EU/DL (0.2-1.0); WBC,Urine <1 /HPF (0-6)
[2018-12-10] MEDS: CYANOCOBALAMIN 500 MCG TABLET PO SCH (08:54)
[2018-12-10] MEDS: FOLIC ACID 1 MG TABLET PO SCH (08:54)
[2018-12-10] MEDS: ASPIRIN CHEW 81 MG TABLET PO SCH (08:54)
[2018-12-10] MEDS: GABAPENTIN 300 MG CAPSULE PO SCH ×2 (08:54→21:04)
[2018-12-10] MEDS: CHOLECALCIFEROL 5,000 UNIT TABLET PO SCH (08:54)
[2018-12-10] MEDS: FERROUS SULFATE 325 MG TABLET PO SCH (08:54)
[2018-12-10] MEDS ORDERED: LOSARTAN 50 MG TABLET PO SCH (09:00)
[2018-12-10] MEDS ORDERED: ENOXAPARIN 30 MG/0.3 ML SYRINGE SUBCUT SCH (09:00)
[2018-12-10] MEDS ORDERED: CARVEDILOL 12.5 MG TABLET PO SCH (09:00)
[2018-12-10] MEDS: FUROSEMIDE 40 MG TABLET PO SCH (18:15)
[2018-12-10] MEDS ORDERED: ATORVASTATIN 20 MG TABLET PO SCH (21:00)
[2018-12-10] MEDS ORDERED: PANTOPRAZOLE 40 MG TABLET PO SCH (21:00)
[2018-12-10] MEDS: CARVEDILOL 25 MG TABLET PO SCH (21:03)
[2018-12-11 05:12] LABS: Basophils # 0.1 10*3/uL (0.0-0.2); Basophils % 0.5 % (0.0-0.8); Eosinophils # 0.3 10*3/uL (0.0-0.87); Hematocrit 25.8 VOL% (35.7-47.0); Hemoglobin 8.2 GM/DL (12.0-16.0); Immature Granulocytes % 0.3 %; Immature Granulocytes Absolute 0.03 #; Lymphocytes # 2.3 10*3/uL (1.4-4.0); Lymphocytes % 25.5 % (21.3-54.2); Mean Corpuscular HGB Conc 31.8 GM/DL (32-36); Mean Corpuscular Volume 89.6 FL (87-102); Mean Platelet Volume 10.4 FL (9.6-12.0); Monocytes % 12.6 % (1.7-12.7); Neutrophils % 58.1 % (38.7-73.9); Platelet Count 323 T/CUMM (130-400); Red Blood Count 2.88 MC/CUMM (3.8-5.5); White Blood Count 9.1 T/CUMM (4-12)
[2018-12-11 05:45] LABS: Calcium 8.5 MG/DL (8.5-10.1); Osmolality,Calculated 292.3 MOS/KG (273-304)
[2018-12-11] MEDS ORDERED: SODIUM POLYSTYRENE SULFATE 15 GM/60 ML BOTTLE PO STA (07:13)
[2018-12-11] MEDS: FUROSEMIDE 40 MG TABLET PO SCH (07:45)
[2018-12-11 08:01] VITALS: BP 177/98
[2018-12-11] MEDS ORDERED: ENOXAPARIN 40 MG/0.4 ML SYRINGE SUBCUT SCH (09:00)
[2018-12-11] MEDS: INSULIN LISPRO 100 UNIT/ML SUBCUT SCH (09:06)
[2018-12-11] MEDS: FERROUS SULFATE 325 MG TABLET PO SCH (10:08)
[2018-12-11] MEDS: CHOLECALCIFEROL 5,000 UNIT TABLET PO SCH (10:08)
[2018-12-11] MEDS: CYANOCOBALAMIN 500 MCG TABLET PO SCH (10:08)
[2018-12-11] MEDS: FOLIC ACID 1 MG TABLET PO SCH (10:08)
[2018-12-11] MEDS: ASPIRIN CHEW 81 MG TABLET PO SCH (10:08)
[2018-12-11] MEDS: CARVEDILOL 25 MG TABLET PO SCH (10:09)
[2018-12-11] MEDS: GABAPENTIN 300 MG CAPSULE PO SCH (10:17)
[2018-12-13] MEDS ORDERED: METHOTREXATE 2.5 MG TABLET PO SCH (09:00)
== END 2018-12-11 12:20 | disposition home or self-care (01) ==
LOC: N.ED 20:17 → N.EDINP 20:17 → SUATTDRO 12-10 01:05 → N.TELES 12-10 01:44
PROVIDERS: ADMIT Internal Medicine; ATTEND Internal Medicine Cardiovascular Disease

== ENCOUNTER 2019-10-18 13:59 | Inpatient (IN) ==
[2019-10-18 15:23] LABS: Basophils % 0.2 % (0.0-0.8); Eosinophils # 0.1 10*3/uL (0.0-0.87); Eosinophils % 0.5 % (0.00-10.9); Hematocrit 31.9 VOL% (35.7-47.0); Hemoglobin 10.3 GM/DL (12.0-16.0); Immature Granulocytes % 0.7 %; Immature Granulocytes Absolute 0.11 #; Lymphocytes # 1.4 10*3/uL (1.4-4.0); Lymphocytes % 9.3 % (21.3-54.2); Mean Corpuscular HGB Conc 32.3 GM/DL (32-36); Mean Corpuscular Volume 85.5 FL (87-102); Monocytes % 8.5 % (1.7-12.7); Neutrophils % 80.8 % (38.7-73.9); Platelet Count 377 T/CUMM (130-400); Red Blood Count 3.73 MC/CUMM (3.8-5.5); Red Cell Distribution Width 13.9 % (9.3-17.3); White Blood Count 14.9 T/CUMM (4-12)
[2019-10-18] MEDS ORDERED: AMPICILLIN/SULBACTAM 3,000 MG in SODIUM CHLORIDE 0.9% 100 ML IV STA (15:28)
[2019-10-18 15:41] LABS: Alanine Aminotransferase 9 U/L (13-56); Albumin 2.4 G/DL (3.4-5.0); Alkaline Phosphatase 129 U/L (45-117); Aspartate Amino Transferase 15 U/L (0-37); Bilirubin,Total < 0.39 MG/DL (0.2-1.0); Blood Urea Nitrogen 31 MG/DL (7-18); Calcium 9.3 MG/DL (8.5-10.1); Estimated Glom Filtration Rate 29 ML/MIN; Osmolality,Calculated 288.1 MOS/KG (273-304); Total Protein 8.6 G/DL (6.4-8.3)
[2019-10-18 15:43] LABS: Glucose 549 MG/DL (74-106)
[2019-10-18] MEDS ORDERED: DEXTROSE 10% 250 ML BAG IV PRN (15:46)
[2019-10-18] MEDS ORDERED: ONDANSETRON 4 MG/2 ML VIAL IV PRN (15:46)
[2019-10-18] MEDS ORDERED: GLUCAGON 1 MG VIAL IM PRN ×2 (15:46)
[2019-10-18] MEDS ORDERED: DEXTROSE 50% 25 GM/50 ML VIAL IV PRN (15:46)
[2019-10-18] MEDS ORDERED: INSULIN REGULAR 100 UNIT/ML IV STA (15:59)
[2019-10-18] MEDS: INSULIN REGULAR 100 UNIT/ML SUBCUT SCH (16:32)
[2019-10-18] MEDS ORDERED: NITROGLYCERIN SL 0.4 MG TABLET SL PRN (17:02)
[2019-10-18] MEDS: INSULIN NPH/REGULAR 70/30 100 UNIT/ML SUBCUT SCH (19:38)
[2019-10-18] MEDS: busPIRone 5 MG TABLET PO SCH (22:07)
[2019-10-18] MEDS: FUROSEMIDE 40 MG TABLET PO SCH (22:08)
[2019-10-18] MEDS: carvediloL 25 MG TABLET PO SCH (22:08)
[2019-10-18] MEDS: ROSUVASTATIN 20 MG TABLET PO SCH (22:08)
[2019-10-18] MEDS: rOPINIRole 1 MG TABLET PO SCH (22:08)
[2019-10-18] MEDS: GABAPENTIN 300 MG CAPSULE PO SCH (22:08)
[2019-10-18] MEDS: CARBIDOPA/LEVODOPA 25-100 MG TABLET PO SCH (22:09)
[2019-10-19] MEDS: INSULIN REGULAR 100 UNIT/ML SUBCUT SCH ×5 (00:30→22:01)
[2019-10-19] MEDS: AMPICILLIN/SULBACTAM 3,000 MG in SODIUM CHLORIDE 0.9% 100 ML IV SCH ×2 (06:54→18:12)
[2019-10-19] MEDS ORDERED: LIDOCAINE 1% 20 ML VIAL ONE (07:12)
[2019-10-19] MEDS ORDERED: LIDOCAINE 2% 5 ML VIAL ONE (08:34)
[2019-10-19] MEDS ORDERED: KETAMINE 500 MG/10 ML VIAL ONE (08:34)
[2019-10-19] MEDS ORDERED: propofoL 200 MG/20 ML VIAL IV ONE (08:34)
[2019-10-19] MEDS ORDERED: MIDAZOLAM 2 MG/2 ML VIAL ONE (08:34)
[2019-10-19] MEDS: FOLIC ACID 0.4 MG TABLET PO SCH (09:56)
[2019-10-19] MEDS: FEXOFENADINE 180 MG TABLET PO SCH (09:56)
[2019-10-19] MEDS: amLODIPine 5 MG TABLET PO SCH (09:56)
[2019-10-19] MEDS: CHOLECALCIFEROL 5,000 UNIT TABLET PO SCH (09:56)
[2019-10-19] MEDS: ASPIRIN CHEW 81 MG TABLET PO SCH (09:56)
[2019-10-19] MEDS: predniSONE 20 MG TABLET PO SCH (09:56)
[2019-10-19] MEDS: rOPINIRole 1 MG TABLET PO SCH ×3 (09:56→20:23)
[2019-10-19] MEDS: CARBIDOPA/LEVODOPA 25-100 MG TABLET PO SCH ×3 (09:57→20:23)
[2019-10-19] MEDS: FUROSEMIDE 40 MG TABLET PO SCH ×2 (09:57→20:23)
[2019-10-19] MEDS: carvediloL 25 MG TABLET PO SCH ×2 (09:57→20:23)
[2019-10-19] MEDS: SERTRALINE 100 MG TABLET PO SCH (09:57)
[2019-10-19] MEDS: PANTOPRAZOLE 40 MG TABLET PO SCH (09:57)
[2019-10-19] MEDS: MAGNESIUM CHLORIDE 64 MG TABLET PO SCH (09:57)
[2019-10-19] MEDS: FOLIC ACID 1 MG TABLET PO SCH (09:57)
[2019-10-19] MEDS: FERROUS SULFATE 325 MG TABLET PO SCH (09:57)
[2019-10-19] MEDS: busPIRone 5 MG TABLET PO SCH ×3 (09:57→20:23)
[2019-10-19] MEDS: CYANOCOBALAMIN 500 MCG TABLET PO SCH (09:57)
[2019-10-19] MEDS: GABAPENTIN 300 MG CAPSULE PO SCH ×2 (09:57→20:22)
[2019-10-19 11:02] LABS: Basophils # 0.1 10*3/uL (0.0-0.2); Basophils % 0.4 % (0.0-0.8); Eosinophils # 0.2 10*3/uL (0.0-0.87); Eosinophils % 1.3 % (0.00-10.9); Hematocrit 28.9 VOL% (35.7-47.0); Hemoglobin 9.2 GM/DL (12.0-16.0); Immature Granulocytes % 0.7 %; Lymphocytes # 2.9 10*3/uL (1.4-4.0); Mean Corpuscular HGB Conc 31.8 GM/DL (32-36); Mean Platelet Volume 9.2 FL (9.6-12.0); Monocytes % 11.2 % (1.7-12.7); Neutrophils % 65.4 % (38.7-73.9); Platelet Count 322 T/CUMM (130-400); Red Blood Count 3.32 MC/CUMM (3.8-5.5); White Blood Count 13.8 T/CUMM (4-12)
[2019-10-19 11:36] LABS: Alanine Aminotransferase < 9 U/L (13-56); Albumin 2.2 G/DL (3.4-5.0); Alkaline Phosphatase 106 U/L (45-117); Aspartate Amino Transferase 17 U/L (0-37); Bilirubin,Total < 0.39 MG/DL (0.2-1.0); Blood Urea Nitrogen 28 MG/DL (7-18); Calcium 8.6 MG/DL (8.5-10.1); Estimated Glom Filtration Rate 33 ML/MIN; Glucose 233 MG/DL (74-106); Osmolality,Calculated 282.1 MOS/KG (273-304); Total Protein 7.1 G/DL (6.4-8.3)
[2019-10-19] MEDS ORDERED: ERGOCALCIFEROL 50,000 UNIT CAPSULE PO SCH (16:00)
[2019-10-19] MEDS: ENOXAPARIN 30 MG/0.3 ML SYRINGE SUBCUT SCH (17:21)
[2019-10-19] MEDS: INSULIN NPH/REGULAR 70/30 100 UNIT/ML SUBCUT SCH (18:09)
[2019-10-19] MEDS: ROSUVASTATIN 20 MG TABLET PO SCH (20:21)
[2019-10-20] MEDS: AMPICILLIN/SULBACTAM 3,000 MG in SODIUM CHLORIDE 0.9% 100 ML IV SCH ×2 (05:30→18:49)
[2019-10-20] MEDS: rOPINIRole 1 MG TABLET PO SCH ×2 (08:06→14:58)
[2019-10-20] MEDS: CYANOCOBALAMIN 500 MCG TABLET PO SCH (08:06)
[2019-10-20] MEDS: FEXOFENADINE 180 MG TABLET PO SCH (08:06)
[2019-10-20] MEDS: FOLIC ACID 0.4 MG TABLET PO SCH (08:06)
[2019-10-20] MEDS: busPIRone 5 MG TABLET PO SCH ×2 (08:07→14:58)
[2019-10-20] MEDS: GABAPENTIN 300 MG CAPSULE PO SCH (08:07)
[2019-10-20] MEDS: CHOLECALCIFEROL 5,000 UNIT TABLET PO SCH (08:07)
[2019-10-20] MEDS: SERTRALINE 100 MG TABLET PO SCH (08:07)
[2019-10-20] MEDS: PANTOPRAZOLE 40 MG TABLET PO SCH (08:07)
[2019-10-20] MEDS: CARBIDOPA/LEVODOPA 25-100 MG TABLET PO SCH ×2 (08:07→14:58)
[2019-10-20] MEDS: FOLIC ACID 1 MG TABLET PO SCH (08:08)
[2019-10-20] MEDS: FERROUS SULFATE 325 MG TABLET PO SCH (08:08)
[2019-10-20] MEDS: carvediloL 25 MG TABLET PO SCH (08:08)
[2019-10-20] MEDS: FUROSEMIDE 40 MG TABLET PO SCH (08:08)
[2019-10-20] MEDS: ASPIRIN CHEW 81 MG TABLET PO SCH (08:08)
[2019-10-20] MEDS: MAGNESIUM CHLORIDE 64 MG TABLET PO SCH (08:08)
[2019-10-20] MEDS: amLODIPine 5 MG TABLET PO SCH (08:08)
[2019-10-20] MEDS: predniSONE 20 MG TABLET PO SCH (08:08)
[2019-10-20] MEDS: INSULIN REGULAR 100 UNIT/ML SUBCUT SCH ×3 (08:27→17:40)
[2019-10-20 17:34] VITALS: BP 141/52
[2019-10-20] MEDS: ENOXAPARIN 30 MG/0.3 ML SYRINGE SUBCUT SCH (17:39)
[2019-10-20] MEDS: INSULIN NPH/REGULAR 70/30 100 UNIT/ML SUBCUT SCH (18:49)
[2019-10-24] MEDS ORDERED: METHOTREXATE 2.5 MG TABLET PO SCH (16:00)
== END 2019-10-20 18:00 | disposition home health service (06) | DRG 617 ==
LOC: N.ED 13:59 → N.EDINP 16:29 → SUATTDRO 16:29 → N.3E 16:48
PROVIDERS: ADMIT Emergency Medicine; ATTEND Family Medicine